=== PATIENT | female | born 1940 | race Caucasian/White ===

== ENCOUNTER → 2017-08-27 | Outpatient (CLI) | payer MEDICARE ==
[2017-05-18 09:12] VITALS: BMI 33.6
[~2017-08-27] MED LIST: ALLO-2 PO; ALLO100T70 PO; AMLO-96 PO; AMLO-99 PO; ASPI-1471 PO; ATOR-1 PO; BLOO-725 MC; CARV12.577 PO; CARV12.578 PO; CEFD300C35 PO; CEFU250T11 PO; CETI-176 PO; CETI10CA8 PO; CHOL200022 PO; CHOL500025 PO; CIPR-214 PO; CLOT15CR63 TP; COLC0.6C3 PO; ENAL20TA99 PO; FAMC250T4 PO; FEN145 PO; FLU180SY9 IM; FLU45SYR25 IM ONLY; FLUC100T35 PO; FURO-45 PO; GABA-1 PO; GABA-549 PO; GEMF600T91 PO; GLUC1KIT4 IJ; HUMALOG SC; HYDR-2966 PO; HYDR-385 PO; INDO-1 PO; INDO50CA92 PO; INSU100C12 SQ; INSU100I28 SQ; INSU100I30 SQ; LANI SUBQ; LEV112 PO; LEV125 PO; LEV175 PO; LEVO-3 PO; LEVO137T23 PO; LEVO75TA73 PO; LISI-362 PO; LISI-374 PO; LISI20TA29 PO; LISI30TA49 PO; LOR5/325 PO; METF-407 PO; METO50TA19 PO; MOD PO; MULT1CAP41 PO; OMEP-125 PO; OXYGENHOME INH; PAN40 PO; PNEU0.5D3 IM; RANI75TA5 PO; ROSU10TA3 PO; ROSU20TA3 PO; ROSU40TA18 PO; SITA100T PO; [UNRECOGNIZED DRUG - CODE]
== END ==
LOC: LAB 09:49
PROVIDERS: ATTEND Emergency Medicine
DX: R39.15 Urgency of urination (principal); B96.89 Other specified bacterial agents as the cause of diseases classified elsewhere
CPT/HCPCS: 81001; 87077; 87088; 87186

== ENCOUNTER → 2017-09-01 | Outpatient (CLI) | payer MEDICARE ==
[2017-05-18 09:12] VITALS: BMI 33.6
[~2017-09-01] MED LIST changes: +CHOL200025 PO; +LEVO750T44 PO; +ROSU10TA13 PO; -ROSU10TA3 PO; +ROSU20TA13 PO; -ROSU20TA3 PO
== END ==
LOC: RESP 20:51
PROVIDERS: ATTEND Emergency Medicine
DX: G47.34 Idiopathic sleep related nonobstructive alveolar hypoventilation (principal); G47.30 Sleep apnea, unspecified; G47.61 Periodic limb movement disorder; G47.21 Circadian rhythm sleep disorder, delayed sleep phase type

== ENCOUNTER → 2017-09-09 | Outpatient (CLI) | payer MEDICARE ==
[2017-05-18 09:12] VITALS: BMI 33.6
== END ==
LOC: LAB 11:10
PROVIDERS: ATTEND Emergency Medicine
DX: N18.3 Chronic kidney disease, stage 3 (moderate) (principal); E11.3293 Type 2 diabetes mellitus with mild nonproliferative diabetic retinopathy without macular edema, bilateral
CPT/HCPCS: 81001

== ENCOUNTER → 2017-10-07 | Outpatient (CLI) | payer MEDICARE ==
[2017-05-18 09:12] VITALS: BMI 33.6
== END ==
LOC: LAB 12:04
PROVIDERS: ATTEND Emergency Medicine
DX: E03.9 Hypothyroidism, unspecified (principal)
CPT/HCPCS: 36415; 84443

== ENCOUNTER → 2017-10-21 | Outpatient (CLI) | payer MEDICARE ==
[2017-05-18 09:12] VITALS: BMI 33.6
== END ==
LOC: LAB 12:04
PROVIDERS: ATTEND Emergency Medicine
DX: E11.9 Type 2 diabetes mellitus without complications (principal)
CPT/HCPCS: 83036

== ENCOUNTER 2017-11-05 01:43 | Day surgery (SDC) | payer MEDICARE ==
[2017-05-18 09:12] VITALS: Ht 162.6 cm; Wt 83.5 kg
[~2017-11-05] VITALS: Ht 162.6 cm; Wt 83.5 kg
[2017-11-05] MEDS ORDERED: OPHTHALMIC PROCEDURE 1 OS PRN (13:20)
[2017-11-05] MEDS ORDERED: OPHTHALMIC PROCEDURE 2 OS PRN ×2 (13:20)
[2017-11-05 13:51] VITALS: BP 177/85
[2017-11-05] MEDS ORDERED: NORMOSOL R SOLN(*) 1000 ML BAG 1,000 ML IV PRN (14:00)
[2017-11-05] MEDS ORDERED: LIDOCAINE/SOD BICARB 8.4% SYR ID ONE (14:00)
[2017-11-05] MEDS ORDERED: MIDAZOLAM 2 MG/2 ML VIAL IVP ONE (14:00)
[2017-11-05] MEDS ORDERED: acetaZOLAMIDE 500 MG CAPCR PO ONE (15:20)
[2017-11-05 16:18] VITALS: BP 178/70
[2017-11-05] MEDS ORDERED: TOBRAMYCIN 0.3% OP SOLN 5 ML OS ONE (17:33)
--- NOTE | 2017-11-05 19:24 | FOSTER LEFT EYE CATARACT ---
EVENT DATE: November 05, 2017 SURGEON: Khanh Harrison MD ANESTHESIOLOGIST: None. ANESTHESIA: Topical. PREOPERATIVE DIAGNOSIS Cataract, left eye. POSTOPERATIVE DIAGNOSIS Cataract, left eye. PROCEDURE Phacoemulsification of cataractous lens with implantation of an intraocular lens , left eye. DESCRIPTION OF PROCEDURE The risks and benefits and alternatives were carefully discussed with the patient, and preoperative consent was obtained. The patient was brought to the operating room after receiving topical anesthetic. The patient was prepped and draped using sterile technique in the usual manner. A stab incision was made, and the chamber was inflated with preservative-free lidocaine. DuoVisc was injected to inflate the chamber. A 2.2 mm blade was used to enter the anterior chamber. Utrata forceps were used to tear a circular capsulorrhexis. BSS was used to hydrodissect the nucleus. Phaco tip was introduced, and the nucleus was chopped into four quadrants. Each quadrant was removed. The I/A tip was used to remove the cortex. The bag was inflated with ProVisc. The intraocular lens was injected into the capsular bag. The I/A tip was used to remove the ProVisc. The wound was found to be watertight. Vigamox, Nevanac, and Maxitrol ointment were placed in the patient's eye. The patient's eye was patched, and the patient was taken to the recovery room in stable condition. The patient was examined in the recovery room and found to be stable prior to release from the hospital. YOAV
== END 2017-11-05 16:55 | disposition home or self-care (01) ==
LOC: OR 01:43
PROVIDERS: ATTEND Ophthalmology
DX: H25.12 Age-related nuclear cataract, left eye (principal)
CPT/HCPCS: 36416; 66984; 82948; A9270; V2632

== ENCOUNTER → 2017-11-23 | Outpatient (CLI) | payer MEDICARE ==
[2017-05-18 09:12] VITALS: BMI 33.6
[~2017-11-23] MED LIST changes: +META800T18 PO
== END ==
LOC: LAB 10:02
PROVIDERS: ATTEND Emergency Medicine
DX: E11.9 Type 2 diabetes mellitus without complications (principal)
CPT/HCPCS: 36415; 82040; 82247; 82310; 82374; 82435; 82465; 82565; 82947; 83718; 84075; 84132; 84155; 84295; 84443; 84450; 84460; 84478; 84520

== ENCOUNTER → 2017-12-21 | Outpatient (CLI) | payer MEDICARE ==
[2017-05-18 09:12] VITALS: BMI 33.6
[~2017-12-21] MED LIST changes: +EXEN2PEN SUBQ
== END ==
LOC: LAB 10:28
PROVIDERS: ATTEND Emergency Medicine
DX: E11.9 Type 2 diabetes mellitus without complications (principal)
CPT/HCPCS: 36415; 83036

== ENCOUNTER → 2018-02-24 | Outpatient (CLI) | payer MEDICARE ==
[2017-05-18 09:12] VITALS: BMI 33.6
[~2018-02-24] MED LIST changes: +BLOO-960 MC; +NEED-653 SUBQ; +SULF-198 PO
[2018-02-24 15:23] LABS: PLATELET COUNT, AUTOMATED 171 K/uL (150-450)
== END ==
LOC: LAB 15:01
PROVIDERS: ATTEND Emergency Medicine
DX: R73.9 Hyperglycemia, unspecified (principal)
CPT/HCPCS: 36415; 81001; 82040; 82247; 82310; 82374; 82435; 82565; 82947; 83036; 84075; 84132; 84155; 84295; 84450; 84460; 84520; 85025

== ENCOUNTER → 2018-02-28 | Outpatient (CLI) | payer MEDICARE ==
[2017-05-18 09:12] VITALS: BMI 33.6
== END ==
LOC: LAB 12:22
PROVIDERS: ATTEND Emergency Medicine
DX: D64.9 Anemia, unspecified (principal)
CPT/HCPCS: 82274

== ENCOUNTER → 2018-03-16 | Outpatient (CLI) | payer MEDICARE ==
[2017-05-18 09:12] VITALS: BMI 33.6
[~2018-03-16] MED LIST changes: +AZEL23SP NS; -INDO-1 PO; +INDO-21 PO; +INDO-23 PO; -INDO50CA92 PO; -ROSU10TA13 PO; +ROSU10TA5 PO; -ROSU20TA13 PO; +ROSU20TA5 PO
[2018-03-16 14:09] LABS: PLATELET COUNT, AUTOMATED 162 K/uL (150-450)
--- NOTE | 2018-03-16 15:10 | EKG ---
FACILITY: [facility] PATIENT NAME: JU PEREIRA : [id number] MR: [id number] V: [id number] EXAM DATE: ORDERING PHYSICIAN: ALEXANDRO BAZAN TECHNOLOGIST: BAILEY JOVEL Test Reason : DYSPNEA Blood Pressure : / mmHG Vent. Rate : 078 BPM Atrial Rate : 078 BPM P-R Int : 186 ms QRS Dur : 130 ms QT Int : 404 ms P-R-T Axes : 075 -51 077 degrees QTc Int : 460 ms Normal sinus rhythm Left axis deviation Left ventricular hypertrophy with QRS widening Abnormal ECG No previous ECGs available Confirmed by ALEXANDRO BAZAN ([id number]) on 03/16/2018 4:16:46 PM Referred By: Confirmed By:ALEXANDRO BAZAN
== END ==
LOC: LAB 13:43
PROVIDERS: ATTEND Emergency Medicine
DX: R94.31 Abnormal electrocardiogram [ECG] [EKG] (principal); E03.9 Hypothyroidism, unspecified; R06.00 Dyspnea, unspecified
CPT/HCPCS: 36415; 82040; 82247; 82310; 82374; 82435; 82565; 82947; 83880; 84075; 84132; 84155; 84295; 84443; 84450; 84460; 84484; 84520; 85025; 85379

== ENCOUNTER → 2018-03-17 | Outpatient (CLI) | payer MEDICARE ==
[2017-05-18 09:12] VITALS: BMI 33.6
--- NOTE | 2018-03-17 15:40 | RADIOLOGY IMAGING REPORT ---
FACILITY: [facility] [place] PATIENT NAME: Lluvia Stephenson : 1940 MR: [id number] V: [id number] EXAM DATE: ORDERING PHYSICIAN: ALEXANDRO BAZAN TECHNOLOGIST: Location: [facility] Patient: Lluvia Stephenson : 1940 Visit/Account:[id number] Date of Sevice: 03/17/2018 EXAMINATION: Nuclear Medicine Ventilation Perfusion Lung Scan 2 View Chest X-Ray 03/17/2018 8:38 AM HISTORY: Dyspnea, cough TECHNIQUE: 33.6 mCi DTPA was administered by inhalation. Static images were obtained. 2.1 mCi Tc MAA was injected intravenously. Gamma camera images were obtained of the chest in various orientations. COMPARISON: Chest x-ray 05/17/2017 FINDINGS: Lung ventilation radiotracer distribution: Mildly heterogeneous localization particularly diminished in the anterior right upper lobe. Lung perfusion radiotracer distribution: Heterogeneous tracer distribution. No discrete focal segme ntal or subsegmental perfusion finding. Correlation to chest x-ray: Increased interstitial markings in the lungs. No pleural effusion. Hear t size is unchanged. Aorta is atherosclerotic. Bony thorax is osteopenic with degenerative spurring in the spine. IMPRESSION: Low probability for acute PE. Report Dictated By: Maicol Boggs MD at 03/17/2018 3:31 PM Report E-Signed By: Maicol Boggs MD at 03/17/2018 3:35 PM WSN:[email or web address]
--- NOTE | 2018-03-17 15:40 | RADIOLOGY IMAGING REPORT ---
FACILITY: [facility] [place] PATIENT NAME: Lluvia Stephenson : 1940 MR: [id number] V: [id number] EXAM DATE: ORDERING PHYSICIAN: ALEXANDRO BAZAN TECHNOLOGIST: Location: [facility] Patient: Lluvia Stephenson : 1940 Visit/Account:[id number] Date of Sevice: 03/17/2018 EXAMINATION: Nuclear Medicine Ventilation Perfusion Lung Scan 2 View Chest X-Ray 03/17/2018 8:38 AM HISTORY: Dyspnea, cough TECHNIQUE: 33.6 mCi DTPA was administered by inhalation. Static images were obtained. 2.1 mCi Tc MAA was injected intravenously. Gamma camera images were obtained of the chest in various orientations. COMPARISON: Chest x-ray 05/17/2017 FINDINGS: Lung ventilation radiotracer distribution: Mildly heterogeneous localization particularly diminished in the anterior right upper lobe. Lung perfusion radiotracer distribution: Heterogeneous tracer distribution. No discrete focal segme ntal or subsegmental perfusion finding. Correlation to chest x-ray: Increased interstitial markings in the lungs. No pleural effusion. Hear t size is unchanged. Aorta is atherosclerotic. Bony thorax is osteopenic with degenerative spurring in the spine. IMPRESSION: Low probability for acute PE. Report Dictated By: Maicol Boggs MD at 03/17/2018 3:31 PM Report E-Signed By: Maicol Boggs MD at 03/17/2018 3:35 PM WSN:[email or web address]
== END ==
LOC: NUC 07:07
PROVIDERS: ATTEND Emergency Medicine
DX: I70.0 Atherosclerosis of aorta (principal); M85.88 Other specified disorders of bone density and structure, other site
CPT/HCPCS: 71046; 78582; 83540; 83550; A9540; A9567

== ENCOUNTER → 2018-03-18 | Outpatient (CLI) | payer MEDICARE ==
[2017-05-18 09:12] VITALS: BMI 33.6
== END ==
LOC: RESP 13:01
PROVIDERS: ATTEND Emergency Medicine
DX: J98.4 Other disorders of lung (principal)
CPT/HCPCS: 94060; 94729

== ENCOUNTER → 2018-03-28 | Outpatient (CLI) | payer MEDICARE ==
[2017-05-18 09:12] VITALS: BMI 33.6
[2018-03-28 11:06] LABS: PLATELET COUNT, AUTOMATED 150 K/uL (150-450)
== END ==
LOC: LAB 10:36
PROVIDERS: ATTEND Emergency Medicine
DX: D64.9 Anemia, unspecified (principal); R73.9 Hyperglycemia, unspecified
CPT/HCPCS: 36415; 82607; 82746; 85025

== ENCOUNTER → 2018-04-11 | Outpatient (CLI) | payer MEDICARE ==
[2017-05-18 09:12] VITALS: BMI 33.6
[~2018-04-11] MED LIST changes: -GEMF600T91 PO; +GEMF600T92 PO
== END ==
LOC: LAB 13:53
PROVIDERS: ATTEND Surgery
DX: C44.619 Basal cell carcinoma of skin of left upper limb, including shoulder (principal)
CPT/HCPCS: 88305

== ENCOUNTER 2018-05-10 11:05 | Inpatient (IN) | payer MEDICARE ==
[2018-05-10] VITALS (8 sets, daily range): BP systolic 91–126; BP diastolic 58–78
[~2018-05-10] VITALS: Ht 160 cm; Wt 85.7 kg
[~2018-05-10 11:05] MED LIST changes: -CARV25TA78 PO; -RIVA15TA PO
--- NOTE | 2018-05-10 11:13 | ER Report ---
History and Physical Time Seen By MD: 11:13 HPI/ROS CHIEF COMPLAINT: New onset A. fib HISTORY OF PRESENT ILLNESS: 77-year-old female patient presents to emergency room with complaint of feeling dizzy. Patient states that she was seen at her primary care provider for a blood pressure check. She states that when they checked her blood pressure that she was normotensive, however they did note that she had an irregular heartbeat. They didn't EKG and found that she was in atrial fibrillation. She states she's never been in that rhythm for. She states she has noticed that her heart rate was elevated for the past week. She states typically in the 120s to 130s. She states she's also been dizzy and passed out a couple of times resulting in a fall. She denies any injury from that. She states she does have some shoulder pain, and pain between the right scapula and her spine. She denies any head or neck pain. She denies any nausea, vomiting or diarrhea. Patient states she is not having any chest pain or shortness of breath. REVIEW OF SYSTEMS: Respiratory: No cough, no dyspnea. Cardiovascular: As noted above Gastrointestinal: No vomiting, no abdominal pain. Musculoskeletal: As noted above. Allergies: Coded Allergies: ciprofloxacin (Unverified Allergy, Unknown, 08/27/17) reported by patient, reaction unknown codeine (Verified Adverse Reaction, Severe, SICK, 07/19/16) adhesive tape (Verified Adverse Reaction, Intermediate, BURN, PEELS OFF SKIN, 07/19/16) Uncoded Allergies: metaxolone (Adverse Reaction, Intermediate, Difficulty breathing, 12/21/17) Home Meds Active Scripts Azelastine/Fluticasone (DYMISTA NASAL SPRAY) 23 Gm [place].pump, 1 SPRAY NS BID, #3 BOTTLE 3 Refills Prov:ALEXANDRO BAZAN MD 04/26/18 Lisinopril (LISINOPRIL) 5 Mg Tablet, 5 MG PO QDAY, #30 TAB 11 Refills Prov:ALEXANDRO BAZAN MD 04/26/18 Allopurinol (Allopurinol) 300 Mg Tablet, 1 TAB PO DAILY, #90 TAB 3 Refills Prov:ALEXANDRO BAZAN MD 04/01/18 Levothyroxine Sodium (LEVOTHYROXINE SODIUM) 75 Mcg Tablet, 0.5 TAB PO QDAY, #45 TAB Prov:ALEXANDRO BAZAN MD 03/30/18 Exenatide Microspheres (Bydureon Pen) 2 Mg/0.65 Ml Pen.injctr, 2 MG SUBQ QWEEK, #4 EA 11 Refills Prov:ALEXANDRO BAZAN MD 03/23/18 Insulin Lispro 100 Un/Ml Pen (HUMALOG 3 ML PEN) 100 Unit/1 Ml Insuln.pen, 12 UNIT SQ ACHS, #1 BOX 11 Refills 11 units before breakfast, 17 units before lunch, 10 units before dinner Prov:ALEXANDRO BAZAN MD 03/18/18 Blood-Glucose Meter (BLOOD GLUCOSE METER) 1 Each Each, EACH MC QID, #1 Prov:ALEXANDRO BAZAN MD 02/25/18 [place], Insulin Disposable (Bd Ultra-Fine Pen Needle) 1 Each Dis.needle, EACH SUBQ 5XD, #1 Prov:ALEXANDRO BAZAN MD 01/04/18 Gabapentin (GABAPENTIN) 300 Mg Capsule, 2 CAP PO HS, #90 CAPSULE 4 Refills Prov:ALEXANDRO BAZAN MD 12/10/17 Insulin Glargine (LANTUS) 100 Unit/Ml Soln, 30 UNIT SUBQ QAM, #1 BOX 11 Refills 30 units every morning. 20 units every night. Prov:ALEXANDRO BAZAN MD 10/21/17 Rosuvastatin Calcium (Rosuvastatin Calcium) 20 Mg Tablet, 1 TAB PO DAILY, #90 TAB 3 Refills Prov:ALEXANDRO BAZAN MD 10/07/17 Carvedilol (COREG) 12.5 Mg Tablet, 12.5 MG PO BID, #180 TAB 4 Refills Prov:ALEXANDRO BAZAN MD 09/30/17 Furosemide (FUROSEMIDE) 20 Mg Tablet, 1 TAB PO DAILY for PRN, #7 TAB 0 Refills Prov:ALEXANDOR BAZAN MD 09/23/17 Omeprazole (OMEPRAZOLE) 20 Mg Capsule.dr, 1 CAP PO QDAY, #90 CAP 4 Refills Prov:ALEXANDRO BAZAN MD 08/10/17 Blood Sugar Diagnostic (CONTOUR) 1 Each Strip, 1 EACH MC 5XD, #150 STRIP 11 Refi lls Use 1 strip 5 times a day for glucose testing. Prov:ALEXANDRO ABZAN MD 11/05/16 Glucagon,Human Recombinant (GLUCAGON EMERGENCY KIT) 1 Mg Kit, 1 MG IJ PRN, #1 KIT 11 Refills Prov:ALEXANDRO BAZAN MD 07/27/16 Reported Medications Cholecalciferol (Vitamin D3) (VITAMIN D3) 2,000 Unit Capsule, 2000 UNIT PO DAILY, CAPSULE 09/01/17 Oxygen (OXYGEN) [place], 2 L INH HS, L 01/23/16 Aspirin (ASPIR 81) 81 Mg Tablet.dr, 81 MG PO QDAY, TAB 01/21/16 Past Medical/Surgical History Patient scheduled past medical history of hypertension, hyperlipidemia, requires oxygen at night, COPD, frequent UTI, arthritis, fractures, diabetes, hypothyroidism, alcohol use. Patient has surgical history of left hand surgery. Patient has a family medical history of cancer. Reviewed Nurses Notes: Yes Hx Smoking: Yes Smoking Status: Former Smoker Exposure to Second Hand Smoke?: No Hx Substance Use Disorder: No Hx Alcohol Use: Yes (daily) Constitutional Vital Sign - Last 24 Hours 05/10/18 05/10/18 05/10/18 05/10/18 11:10 11:11 11:11 11:15 Temp 97.9 Pulse ??? 130 129 Resp 16 23 B/P (MAP) 125/93 125/93 (104) Pulse Ox 97 98 O2 Delivery Room Air 05/10/18 05/10/18 05/10/18 05/10/18 11:19 11:20 11:21 11:24 Pulse 104 Resp 11 B/P (MAP) 102/74 (83) 68/41 (50) 125/64 (84) Pulse Ox 99 05/10/18 05/10/18 05/10/18 05/10/18 11:25 11:30 11:35 11:40 Pulse 132 138 137 ??? Resp 21 17 19 B/P (MAP) ???/??? (1665) Pulse Ox 96 98 05/10/18 05/10/18 05/10/18 05/10/18 11:45 11:50 11:55 12:00 Pulse ??? 125 135 129 Resp 30 27 11 B/P (MAP) 123/70 (87) Pulse Ox 97 98 97 05/10/18 05/10/18 05/10/18 05/10/18 12:05 12:10 12:15 12:20 Pulse 123 113 131 135 Resp 15 19 15 10 B/P (MAP) 102/76 (85) Pulse Ox 93 95 90 96 05/10/18 05/10/18 05/10/18 05/10/18 12:25 12:30 12:35 12:40 Pulse 136 100 97 107 Resp 10 33 16 21 B/P (MAP) 121/70 (87) Pulse Ox 92 92 94 96 05/10/18 05/10/18 05/10/18 05/10/18 12:45 12:50 12:55 13:00 Pulse 126 135 100 103 Resp 8 16 18 8 B/P (MAP) 125/91 (102) Pulse Ox 94 96 95 96 05/10/18 05/10/18 05/10/18 05/10/18 13:05 13:10 13:15 13:20 Pulse 123 116 104 72 Resp 15 15 12 16 B/P (MAP) 130/87 (101) Pulse Ox 97 97 96 95 05/10/18 05/10/18 05/10/18 05/10/18 13:25 13:30 13:35 13:40 Pulse 124 100 126 Resp 10 15 14 8 B/P (MAP) 130/63 (85) Pulse Ox 94 96 95 96 05/10/18 05/10/18 05/10/18 05/10/18 13:45 13:50 13:55 14:00 Pulse 118 98 92 95 Resp 17 21 7 11 B/P (MAP) 125/87 (100) Pulse Ox 89 93 94 96 05/10/18 05/10/18 05/10/18 05/10/18 14:05 14:10 14:15 14:20 Pulse 81 103 102 Resp 22 7 9 16 B/P (MAP) 120/52 (74) Pulse Ox 96 86 87 89 Physical Exam General Appearance: The patient is alert, has no immediate need for airway protection and no current signs of toxicity. Respiratory: Chest is non tender, lungs are clear to auscultation. Cardiac: Irregular rate and rhythm Gastrointestinal: Abdomen is soft and non tender, no masses, bowel sounds normal. Musculoskeletal: Neck: Neck is supple and non tender. Extremities have full range of motion and are non tender. Skin: No rashes or lesions. DIFFERENTIAL DIAGNOSIS: After history and physical exam differential diagnosis was considered for new onset atrial fibrillation, AL, pneumonia, hypertension and thyroidism. Medical Decision Making Data Points Result Diagram: 05/10/18 1137 05/10/18 1118 Laboratory Hematology Test 05/10/18 11:18 05/10/18 11:37 Prothrombin Time 12.8 seconds (12.0-14.4) Prothromb Time International Ratio 0.96 Activated Partial Thromboplast Time 27 seconds (23-35) Sodium Level 137 mmol/L (137-145) Potassium Level 4.4 mmol/L (3.5-5.0) Chloride Level 103 mmol/L (98-107) Carbon Dioxide Level 24 mmol/L (22-31) Blood Urea Nitrogen 21 mg/dl (7-18) Creatinine 1.20 mg/dl (0.52-1.04) Glomerular Filtration Rate Calc 43.8 Random Glucose 110 mg/dl (75-110) Calcium Level 9.5 mg/dl (8.4-10.2) Total Bilirubin 0.4 mg/dl (0.2-1.3) Aspartate Amino Transf (AST/SGOT) 27 U/L (0-35) Alanine Aminotransferase (ALT/SGPT) 34 U/L (0-56) Alkaline Phosphatase 49 U/L (0-126) Troponin I 0.057 ng/ml Total Protein 6.4 g/dl (6.3-8.2) Albumin 3.9 g/dl (3.5-5.0) Thyroid Stimulating Hormone (TSH) 65.00 uIU/ml (0.46-4.68) Red Blood Count 3.44 M/uL (4.17-5.56) Mean Corpuscular Volume 93.1 fL (80.0-96.0) Mean Corpuscular Hemoglobin 31.1 pg (26.0-33.0) Mean Corpuscular Hemoglobin Concent 33.5 g/dL (32.0-36.0) Red Cell Distribution Width 17.4 % (11.5-14.5) Mean Platelet Volume 9.5 fL (7.2-11.1) Neutrophils (%) (Auto) 54.2 % (39.4-72.5) Lymphocytes (%) (Auto) 33.5 % (17.6-49.6) Monocytes (%) (Auto) 9.2 % (4.1-12.4) Eosinophils (%) (Auto) 2.1 % (0.4-6.7) Basophils (%) (Auto) 1.0 % (0.3-1.4) Nucleated RBC Relative Count (auto) 0.0 /100WBC Neutrophils # (Auto) 3.1 K/uL (2.0-7.4) Lymphocytes # (Auto) 1.9 K/uL (1.3-3.6) Monocytes # (Auto) 0.5 K/uL (0.3-1.0) Eosinophils # (Auto) 0.1 K/uL (0.0-0.5) Basophils # (Auto) 0.1 K/uL (0.0-0.1) Nucleated RBC Absolute Count (auto) 0.00 K/uL B-Type Natriuretic Peptide 299 pg/ml (0-100) Chemistry Test 05/10/18 11:18 05/10/18 11:37 Prothrombin Time 12.8 seconds (12.0-14.4) Prothromb Time International Ratio 0.96 Activated Partial Thromboplast Time 27 seconds (23-35) Glomerular Filtration Rate Calc 43.8 Calcium Level 9.5 mg/dl (8.4-10.2) Total Bilirubin 0.4 mg/dl (0.2-1.3) Aspartate Amino Transf (AST/SGOT) 27 U/L (0-35) Alanine Aminotransferase (ALT/SGPT) 34 U/L (0-56) Alkaline Phosphatase 49 U/L (0-126) Troponin I 0.057 ng/ml Total Protein 6.4 g/dl (6.3-8.2) Albumin 3.9 g/dl (3.5-5.0) Thyroid Stimulating Hormone (TSH) 65.00 uIU/ml (0.46-4.68) White Blood Count 5.8 k/uL (4.5-11.0) Red Blood Count 3.44 M/uL (4.17-5.56) Hemoglobin 10.7 g/dL (12.0-16.0) Hematocrit 32.0 % (34.0-47.0) Mean Corpuscular Volume 93.1 fL (80.0-96.0) Mean Corpuscular Hemoglobin 31.1 pg (26.0-33.0) Mean Corpuscular Hemoglobin Concent 33.5 g/dL (32.0-36.0) Red Cell Distribution Width 17.4 % (11.5-14.5) Platelet Count 123 K/uL (150-450) Mean Platelet Volume 9.5 fL (7.2-11.1) Neutrophils (%) (Auto) 54.2 % (39.4-72.5) Lymphocytes (%) (Auto) 33.5 % (17.6-49.6) Monocytes (%) (Auto) 9.2 % (4.1-12.4) Eosinophils (%) (Auto) 2.1 % (0.4-6.7) Basophils (%) (Auto) 1.0 % (0.3-1.4) Nucleated RBC Relative Count (auto) 0.0 /100WBC Neutrophils # (Auto) 3.1 K/uL (2.0-7.4) Lymphocytes # (Auto) 1.9 K/uL (1.3-3.6) Monocytes # (Auto) 0.5 K/uL (0.3-1.0) Eosinophils # (Auto) 0.1 K/uL (0.0-0.5) Basophils # (Auto) 0.1 K/uL (0.0-0.1) Nucleated RBC Absolute Count (auto) 0.00 K/uL B-Type Natriuretic Peptide 299 pg/ml (0-100) Coagulation Test 05/10/18 11:18 Prothrombin Time 12.8 seconds Prothromb Time International Ratio 0.96 Activated Partial Thromboplast Time 27 seconds EKG/Imaging EKG Interpretation 12 lead EKG: Rhythm: A fibrillation with rapid ventricular response, ventricular rate of 125 bpm [place]: Left axis deviation QRS: normal ST segments: normal Imaging Exam type: CHEST PA AND LAT History: pain after fall Comparison: March 17, 2018. Findings: The lungs are free of acute effusions, infiltrates or edema. There is no evidence of a pneumothorax or pneumomediastinum. Mildly prominent chronic initial markings again seen throughout the lungs. Cardiac silhouette is upper limits of normal in size although stable. There are spondylotic changes of the thoracolumbar spine IMPRESSION: 1. Mild chronic interstitial changes throughout the lungs Cardiac silhouette is upper limits of normal in size although stable Report Dictated By: Kaylynn Torres MD at 05/10/2018 1:00 PM Report E-Signed By: Kaylynn Torres MD at 05/10/2018 1:02 PM Exam type: SHOULDER MIN 2 VIEWS RIGHT History: pain after fall Comparison: None. Findings: Two views of the right shoulder demonstrate mild degenerative changes at the right glenohumeral joint. No gross evidence of acute fracture or dislocation. There is a bony density projecting just superior to the right AC joint which cou ld be degenerative in nature although small avulsion fracture fragment in this location not excluded IMPRESSION: 1. Mild degenerative changes of the right shoulder Small bony density projects just superior to the right AC joint possibly degenerative versus a small avulsion fracture fragment Report Dictated By: Kaylynn Torres MD at 05/10/2018 12:59 PM Report E-Signed By: Kaylynn Torres MD at 05/10/2018 1:00 PM ED Course/Re-evaluation ED Course Patient was admitted to an exam room, history and physical were obtained. Differential diagnoses were considered. On examination lungs are clear, heart was irregularly irregular. An EKG was done which showed atrial fibrillation with rapid ventricular response. An IV was started, a CBC, CMP, troponin, BNP, chest x-ray were done. X-ray of the shoulder was also done. The x-rays were negative. There was some possible avulsion fracture of the shoulder, however there was not and location with the patient was tender. The lab work was unremarkable, patient had a creatinine of 1.2. Troponin was indeterminate at 0.054, I believe that is likely secondary to the rapid rate, 120s to 130s for the past week, as well as her kidney failure. I discussed this with the patient. Patient did receive 10 mg of diltiazem IV. That did bring her heart rate down, however he did bounce between mid 90s and 130. I discussed with patient that I believe she should be admitted for observation overnight, so she can get an echocardiogram done. Patient was resistant, however felt patient should be. I did discuss the case with Dr. Diana, hospitalist, who did come down and evaluate the patient. He did request that I start the patient on 5 mg per hour IV diltiazem. He did agree to accept the patient for admission. While he was here patient maintained the 80s and 90s with her heart rate. Decision to Disposition Date: May 10, 2018 Decision to Disposition Time: 14:04 Depart Departure Latest Vital Signs Vital Signs Date Time Temp Pulse Resp B/P (MAP) Pulse Ox O2 Delivery O2 Flow Rate FiO2 05/10/18 14:20 16 120/52 (74) 89 05/10/18 14:15 102 05/10/18 11:11 97.9 Room Air Impression: Primary Impression: New onset atrial fibrillation Condition: Improved Disposition: Admitted from ER Referrals: ALEXANDRO BAZAN MD (PCP) DIANE HADDAD May 10, 2018 11:13
[2018-05-10] MEDS ORDERED: NS(*) 0.9% 500 ML BAG 500 ML IV ONE (11:14)
--- NOTE | 2018-05-10 11:27 | EKG ---
FACILITY: [facility] [place] PATIENT NAME: JU PEREIRA : [id number] MR: [id number] V: [id number] EXAM DATE: ORDERING PHYSICIAN: DIANE HADDAD TECHNOLOGIST: Test Reason : palpitations Blood Pressure : / mmHG Vent. Rate : 125 BPM Atrial Rate : 086 BPM P-R Int : 000 ms QRS Dur : 120 ms QT Int : 326 ms P-R-T Axes : 000 -47 134 degrees QTc Int : 470 ms Atrial fibrillation with rapid ventricular response Left bundle branch block When compared with ECG of 16-MAR-2018 12:47, Atrial fibrillation has replaced Sinus rhythm Vent. rate has increased BY 47 BPM Confirmed by GABI CARVALHO ([id number]) on 05/10/2018 3:24:08 PM Referred By: Confirmed By:GABI CARVALHO
[2018-05-10 11:41] LABS: INR 0.96
[2018-05-10 11:43] LABS: PLATELET COUNT, AUTOMATED 123 K/uL (150-450)
[2018-05-10] MEDS ORDERED: DILTIAZEM 5 MG/ML 5ML IVPUSH IVP ONE (12:00)
[2018-05-10] MEDS: DILTIAZEM HCL* 100 MG ADDVIAL 100 MG in NS(*) 0.9% 100 ML ADDVANT BAG 100 ML IV SCH (13:00)
--- NOTE | 2018-05-10 13:04 | RADIOLOGY IMAGING REPORT ---
FACILITY: [facility] [place] PATIENT NAME: Lluvia Stephenson : 1940 MR: [id number] V: [id number] EXAM DATE: ORDERING PHYSICIAN: DIANE HADDAD TECHNOLOGIST: Location: [facility] Patient: Lluvia Stephenson : 1940 Visit/Account:[id number] Date of Sevice: 05/10/2018 Exam type: SHOULDER MIN 2 VIEWS RIGHT History: pain after fall Comparison: None. Findings: Two views of the right shoulder demonstrate mild degenerative changes at the right glenohumeral joint . No gross evidence of acute fracture or dislocation. There is a bony density projecting just super ior to the right AC joint which could be degenerative in nature although small avulsion fracture frag ment in this location not excluded IMPRESSION: 1. Mild degenerative changes of the right shoulder Small bony density projects just superior to the right AC joint possibly degenerative versus a small avulsion fracture fragment Report Dictated By: Kaylynn Torres MD at 05/10/2018 12:59 PM Report E-Signed By: Kaylynn Torres MD at 05/10/2018 1:00 PM WSN:[email or web address]
--- NOTE | 2018-05-10 13:06 | RADIOLOGY IMAGING REPORT ---
FACILITY: [facility] PATIENT NAME: Lluvia Stephenson : 1940 MR: [id number] V: [id number] EXAM DATE: ORDERING PHYSICIAN: DIANE HADDAD TECHNOLOGIST: Location: [facility] [place] Patient: Lluvia Stephenson : 1940 Visit/Account:[id number] Date of Sevice: 05/10/2018 Exam type: CHEST PA AND LAT History: pain after fall Comparison: March 17, 2018. Findings: The lungs are free of acute effusions, infiltrates or edema. There is no evidence of a pneumothorax or pneumomediastinum. Mildly prominent chronic initial markings again seen throughout the lungs. Ca rdiac silhouette is upper limits of normal in size although stable. There are spondylotic changes of the thoracolumbar spine IMPRESSION: 1. Mild chronic interstitial changes throughout the lungs Cardiac silhouette is upper limits of normal in size although stable Report Dictated By: Kaylynn Torres MD at 05/10/2018 1:00 PM Report E-Signed By: Kaylynn Torres MD at 05/10/2018 1:02 PM WSN:[email or web address]
[2018-05-10] MEDS ORDERED: NS(*) 0.9% 1000 ML BAG 1,000 ML IV PRN (14:24)
[2018-05-10] MEDS ORDERED: INSULIN HUM LISPRO 100 UN/ML 3 ML VIAL SUBQ PRN (14:25)
[2018-05-10] MEDS ORDERED: INFLUENZA VIRUS VAC 0.5 ML SYR IM ONLY ONE (14:25)
--- NOTE | 2018-05-10 15:40 | History & Physical ---
History of Present Illness History of Present Illness 77yo female with HFpEF, T2DM and hypothyroid who came to the ER from her PCP's clinic for concern of atrial fibrillation. The patient checks her BP/P daily because of low BP for the last couple of months. She just had her lisinopril decreased from 5mg to 2mg. She has had some falls over the last couple of we. No reported LOC or dizziness, she just falls backwards. Since 05/07 (3 days), her heart rate has been in the 130's. She denies cp/sob/palpitations. She had a SBP in the 90's today at home, so went to see the nurse at the clinic. Her heart rate was 133bpm and SBP was 108 in clinic. She was found to be in atrial fibrillation by ECG, so was sent to the ER. The patient has had her levothyroxine was cut in half about 6 weeks ago. In the ER, she was given a dose of 10mg IV diltiazem and then started on a drip at 5mg/hour. History Problems: (1) Asthma Status: Chronic (2) CKD (chronic kidney disease) stage 3, GFR 30-59 ml/min Status: Chronic (3) Hypothyroid Status: Chronic (4) HTN (hypertension) Status: Chronic (5) Gout Status: Chronic (6) Diabetic peripheral neuropathy Status: Chronic (7) Non-proliferative diabetic retinopathy Status: Chronic (8) Obesity Status: Chronic (9) GERD (gastroesophageal reflux disease) Status: Chronic (10) Pleural effusion Status: Resolved (11) Dyslipidemia Status: Chronic Home Meds Active Scripts Azelastine/Fluticasone (DYMISTA NASAL SPRAY) 23 Gm [place].pump, 1 SPRAY NS BID, #3 BOTTLE 3 Refills Prov:ALEXANDRO BAZAN MD 04/26/18 Lisinopril (LISINOPRIL) 5 Mg Tablet, 5 MG PO QDAY, #30 TAB 11 Refills Prov:ALEXANDRO BAZAN MD 04/26/18 Allopurinol (Allopurinol) 300 Mg Tablet, 1 TAB PO DAILY, #90 TAB 3 Refills Prov:ALEXANDRO BAZAN MD 04/01/18 Levothyroxine Sodium (LEVOTHYROXINE SODIUM) 75 Mcg Tablet, 0.5 TAB PO QDAY, #45 TAB Prov:ALEXANDRO BAZAN MD 03/30/18 Exenatide Microspheres (Bydureon Pen) 2 Mg/0.65 Ml Pen.injctr, 2 MG SUBQ QWEEK, #4 EA 11 Refills Prov:ALEXANDRO BAZAN MD 03/23/18 Insulin Lispro 100 Un/Ml Pen (HUMALOG 3 ML PEN) 100 Unit/1 Ml Insuln.pen, 12 UNIT SQ ACHS, #1 BOX 11 Refills 11 units before breakfast, 17 units before lunch, 10 units before dinner Prov:ALEXANDRO BAZAN MD 03/18/18 Blood-Glucose Meter (BLOOD GLUCOSE METER) 1 Each Each, EACH MC QID, #1 Prov:ALEXANDRO BAZAN MD 02/25/18 [place], Insulin Disposable (Bd Ultra-Fine Pen Needle) 1 Each Dis.needle, EACH SUBQ 5XD, #1 Prov:ALEXANDRO BAZAN MD 01/04/18 Gabapentin (GABAPENTIN) 300 Mg Capsule, 2 CAP PO HS, #90 CAPSULE 4 Refills Prov:ALEXANDRO BAZAN MD 12/10/17 Insulin Glargine (LANTUS) 100 Unit/Ml Soln, 30 UNIT SUBQ QAM, #1 BOX 11 Refills 30 units every morning. 20 units every night. Prov:ALEXANDRO BAZAN MD 10/21/17 Rosuvastatin Calcium (Rosuvastatin Calcium) 20 Mg Tablet, 1 TAB PO DAILY, #90 TAB 3 Refills Prov:ALEXANDRO BAZAN MD 10/07/17 Carvedilol (COREG) 12.5 Mg Tablet, 12.5 MG PO BID, #180 TAB 4 Refills Prov:ALEXANDRO BAZAN MD 09/30/17 Furosemide (FUROSEMIDE) 20 Mg Tablet, 1 TAB PO DAILY for PRN, #7 TAB 0 Refills Prov:ALEXANDRO BAZAN MD 09/23/17 Omeprazole (OMEPRAZOLE) 20 Mg Capsule.dr, 1 CAP PO QDAY, #90 CAP 4 Refills Prov:ALEXANDRO BAZAN MD 08/10/17 Blood Sugar Diagnostic (CONTOUR) 1 Each Strip, 1 EACH MC 5XD, #150 STRIP 11 Refills Use 1 strip 5 times a day for glucose testing. Prov:ALEXANDRO BAZAN MD 11/05/16 Glucagon,Human Recombinant (GLUCAGON EMERGENCY KIT) 1 Mg Kit, 1 MG IJ PRN, #1 KIT 11 Refills Prov:ALEXANDRO BAZAN MD 07/27/16 Reported Medications Cholecalciferol (Vitamin D3) (VITAMIN D3) 2,000 Unit Capsule, 2000 UNIT PO DAILY, CAPSULE 09/01/17 Oxygen (OXYGEN) Inha, 2 L INH HS, L 01/23/16 Aspirin (ASPIR 81) 81 Mg Tablet.dr, 81 MG PO QDAY, TAB 01/21/16 Allergies: Coded Allergies: ciprofloxacin (Unverified Allergy, Unknown, 08/27/17) reported by patient, reaction unknown codeine (Verified Adverse Reaction, Severe, SICK, 07/19/16) adhesive tape (Verified Adverse Reaction, Intermediate, BURN, PEELS OFF SKIN, 07/19/16) Uncoded Allergies: metaxolone (Adverse Reaction, Intermediate, Difficulty breathing, 12/21/17) Patient History: Colorectal cancer Colorectal cancer FH: HTN (hypertension) MOTHER, , Age:74 FH: abdominal aortic aneurysm MOTHER, , Age:74 FH: cancer BROTHER OR SISTER BROTHER OR SISTER FH: heart attack FATHER, , Age:70 BROTHER OR SISTER FH: hyperlipidemia MOTHER, , Age:74 Other Social/Family Hx Remote tobacco use hx (>40pk yr hx). Occasional alcohol use. Hx Smoking: Yes Smoking Status: Former Smoker Exposure to Second Hand Smoke?: No Caffeine Intake: Coffee Caffeine/Cups Per Day: 4 Hx Alcohol Use: Yes (daily) Hx Substance Use Disorder: No Social Drug Use: Never Review of Systems All Systems Reviewed/Normal: Yes, Except as Noted Exam Vital Signs Vital Signs Date Time Temp Pulse Resp B/P (MAP) Pulse Ox O2 Delivery O2 Flow Rate FiO2 05/10/18 14:25 113 14 84 05/10/18 14:20 120/52 (74) 05/10/18 11:11 97.9 Room Air General Appearance: Alert, Awake, No Acute Distress Neuro: No Gross deficits Eyes: PERRLA ENT: Moist Mucous Membranes Cardiovascular: No JVD, Other (irreg irreg, tachy, no m/r/g) Respiratory: Other (Bibasilar insp crackles) GI: Abd Soft and Non-Tender Extremities: No Edema Integumentary: No Jaundice, No Cyanosis Medical Decision Making Data Points Result Diagram: 05/10/18 1137 05/10/18 1118 Item Value Date Time Thyroid Stimulating Hormone (TSH) 65.00 uIU/ml H 05/10/18 1118 B-Type Natriuretic Peptide 299 pg/ml H 05/10/18 1137 Troponin I 0.057 ng/ml 05/10/18 1118 Total Bilirubin 0.4 mg/dl 05/10/18 1118 Aspartate Amino Transf (AST/SGOT) 27 U/L 05/10/18 1118 Alanine Aminotransferase (ALT/SGPT) 34 U/L 05/10/18 1118 Alkaline Phosphatase 49 U/L 05/10/18 1118 Neutrophils (%) (Auto) 54.2 % 05/10/18 1137 Lymphocytes (%) (Auto) 33.5 % 05/10/18 1137 Monocytes (%) (Auto) 9.2 % 05/10/18 1137 Eosinophils (%) (Auto) 2.1 % 05/10/18 1137 Basophils (%) (Auto) 1.0 % 05/10/18 1137 Hemoglobin 11.4 g/dL L 03/28/18 1050 Hemoglobin 10.7 g/dL L 05/10/18 1137 Platelet Count 150 K/uL 03/28/18 1050 Platelet Count 123 K/uL L 05/10/18 1137 Prothromb Time International Ratio 0.96 05/10/18 1118 Iron Level 84 ug/dl 03/17/18 0000 Total Iron Binding Capacity 290 ug/dl 03/17/18 0000 Percent Iron Saturation 29.0 % 03/17/18 0000 Folate >22.3 ng/mL 03/28/18 1050 Vitamin B12 Level 608 pg/mL 03/28/18 1050 EKG / Imaging EKG Interpretation Atrial fibrillation with RVR. LBBB. Atrial fib is new from previous. Imaging CXR - 1. Mild chronic interstitial changes throughout the lungs Cardiac silhouette is upper limits of normal in size although stable Shoulder Xray - 1. Mild degenerative changes of the right shoulder Small bony density projects just superior to the right AC joint possibly degenerative versus a small avulsion fracture fragment Assessment and Plan Problems: (1) New onset atrial fibrillation Status: Acute Assessment & Plan: She presented with heart rates to the 130's since 05/07. She has been asymptomatic, but has had some falls in the last couple weeks that aren't common for her. She has been rate controlled with diltiazem bolus and drip of 5mg/hour. She is already on Coreg 12.5mg bid, so will increase to Coreg 18.75 bid this evening and stop the diltiazem drip. Echo pending. TSH was high. See below. Will start Xarelto, renal dosing, with dinner. She has bibasilar crackles and the BNP/Troponin are elevated concerning that she is having some strain/CHF exacerbation from the atrial fibrillation. Will follow. (2) (HFpEF) heart failure with preserved ejection fraction Status: Chronic Assessment & Plan: See above. (3) Shoulder pain Status: Acute Assessment & Plan: The patient didn't report shoulder pain to me, but did have an Xray in the ER that saw a small bony density that could be degenerative vs a small avulsion fracture fragment. (4) Hypothyroid Status: Chronic Assessment & Plan: She has been reduced on her levothyroxine twice in the last couple of months. The most recent reduction was from 75mcg to 37.5mcg about 6 weeks ago. Today, the TSH is 65. Will resume 75mcg a day and recheck TSH with a free T4 tomorrow. (5) Insulin-requiring or dependent type II diabetes mellitus Status: Chronic Assessment & Plan: Chronically on Lantus, preprandial insulin and Exenatide. Will continue Lantus for now. SSI to cover AC and HS glucose. (6) CKD (chronic kidney disease) stage 3, GFR 30-59 ml/min Status: Chronic Assessment & Plan: Baseline creatinine is 1.2-1.3. Will follow. (7) HTN (hypertension) Status: Chronic Assessment & Plan: Chronically on lisinopril and Coreg. The lisinopril was reduced from 5mg to 2mg because she has been having low BP since February. Lisinopril to be held and will increase Coreg as mentioned above. (8) Gout Status: Chronic Assessment & Plan: Continue chronic allopurinol. (9) Diabetic peripheral neuropathy Status: Chronic Assessment & Plan: Continue chronic Gabapentin. Copies to: ALEXANDRO BAZAN MD ; Venous Thromboembolism Antithrombotics Is Pt On Any Antithrombotics?: Yes Exam Sepsis Risk: No Definite Risk Problem Qualifiers (1) Shoulder pain: Laterality: right GABI CARVALHO MD May 10, 2018 15:40
[2018-05-10] MEDS ORDERED: RIVAROXABAN 10 MG TAB PO SCH (17:00)
[2018-05-10] MEDS ORDERED: INSU100I28 SQ (17:10)
[2018-05-10] MEDS ORDERED: GABAPENTIN 300 MG CAP PO SCH (21:00)
[2018-05-10] MEDS ORDERED: CARVEDILOL 6.25 MG TAB PO SCH (21:00)
[2018-05-10] MEDS ORDERED: ROSUVASTATIN CALCIUM 10 MG TAB PO SCH (21:00)
[2018-05-11 02:18] VITALS: BP 122/70
[2018-05-11 05:20] VITALS: BP 120/70
[2018-05-11] MEDS: DILTIAZEM HCL* 100 MG ADDVIAL 100 MG in NS(*) 0.9% 100 ML ADDVANT BAG 100 ML IV SCH (05:22)
[2018-05-11 05:49] LABS: PLATELET COUNT, AUTOMATED 129 K/uL (150-450)
[2018-05-11] MEDS ORDERED: LEVOTHYROXINE SOD 0.075 MG TAB PO SCH (06:00)
[2018-05-11] MEDS ORDERED: NS(*) 0.9% 500 ML BAG 500 ML ONE (06:29)
[2018-05-11 07:26] VITALS: BP 101/68
[2018-05-11 08:10] VITALS: Ht 160 cm; Wt 85.7 kg
--- NOTE | 2018-05-11 08:44 | Hospitalist Progress Note ---
Subjective Progress Notes Subjective She reports doing "OK...I guess". No CP or dyspnea. She continues in a-fib, but rate has been improved. She did receive a dose of Xarelto 15mg last evening. Physical Exam Vital Signs Date Time Temp Pulse Resp B/P (MAP) Pulse Ox O2 Delivery O2 Flow Rate FiO2 05/11/18 07:26 98.0 16 101/68 (79) 93 Nasal Cannula 1.0 05/11/18 04:00 107 Intake and Output 05/11/18 07:00 Intake Total 1092.9 ml Balance 1092.9 ml Intake Oral 480 ml IV Total 612.9 ml # Voids 2 General Appearance: Alert, Awake Cardiovascular: Other (Irregular) Respiratory: Clear to Auscultation Result Diagram: 05/11/18 0530 05/11/18 0530 Assessment and Plan Problems: (1) New onset atrial fibrillation Status: Acute Assessment & Plan: She presented with heart rates to the 130's since ~05/07/18. She has been relatively asymptomatic, but has had some falls in the last couple weeks that aren't common for her. She has had better rate control with diltiazem bolus and drip. She has already been on Coreg 12.5mg bid, so will increase to Coreg 25mg BID today and stop the diltiazem drip. Echocardiogram still pending. TSH was low normal in February and now very high (65.0), so have changed her L-thyroxine dose back to 75mcg daily. We have started Xarelto, renal dosed. She appears to be doing fairly well. Will start to mobilize. (2) (HFpEF) heart failure with preserved ejection fraction Status: Chronic Assessment & Plan: See above. Echocardiogram pending. (3) Shoulder pain Status: Acute Assessment & Plan: The patient didn't report shoulder pain, but did have an X- ray in the ER that saw a small bony density that could be degenerative (vs. a small avulsion fracture fragment). (4) Hypothyroid Status: Chronic Assessment & Plan: She has been reduced on her levothyroxine twice in the last couple of months. The most recent reduction was from 75mcg to 37.5mcg about 6 weeks ago. Today, the TSH is 65.0. We have resumed 75mcg a day and recheck TSH with a free T4 today. (5) Insulin-requiring or dependent type II diabetes mellitus Status: Chronic Assessment & Plan: Chronically on Lantus, preprandial insulin, and Exenatide. Will continue Lantus for now. SSI to cover AC and HS glucoses. (6) CKD (chronic kidney disease) stage 3, GFR 30-59 ml/min Status: Chronic Assessment & Plan: Baseline creatinine is 1.2-1.3. Improved to 1.1 today. (7) HTN (hypertension) Status: Chronic Assessment & Plan: Chronically on lisinopril and Coreg. The lisinopril was reduced from 5mg to 2mg because she has been having low BP since February. Lisinopril to be held and will increase Coreg as mentioned above. (8) Gout Status: Chronic Assessment & Plan: Continue chronic allopurinol. (9) Diabetic peripheral neuropathy Status: Chronic Assessment & Plan: Continue chronic Gabapentin. Exam Sepsis Risk: No Definite Risk Problem Qualifiers (1) Shoulder pain: Laterality: right TOSHA JOLLEY MD May 11, 2018 08:43
[2018-05-11] MEDS ORDERED: CARVEDILOL 25 MG TABLET PO SCH (09:00)
[2018-05-11] MEDS ORDERED: DILTIAZEM HCL* 100 MG ADDVIAL 100 MG in NS(*) 0.9% 100 ML ADDVANT BAG 100 ML IV SCH (09:00)
[2018-05-11] MEDS ORDERED: CARVEDILOL 6.25 MG TAB PO SCH (09:00)
[2018-05-11] MEDS ORDERED: PANTOPRAZOLE SOD 40 MG TABEC PO SCH (09:00)
[2018-05-11] MEDS ORDERED: ALLOPURINOL 300 MG TAB PO SCH (09:00)
[2018-05-11] MEDS ORDERED: INSULIN GLARGINE 100 U/ML 3 ML PEN SUBQ SCH (09:00)
[2018-05-11] MEDS ORDERED: OXYGENHOME INH (14:16)
[2018-05-11] MEDS ORDERED: CARV25TA78 PO (14:16)
[2018-05-11] MEDS ORDERED: LEVO75TA73 PO (14:16)
[2018-05-11] MEDS ORDERED: RIVA15TA PO (14:16)
--- NOTE | 2018-05-11 14:29 | Hospitalist Depart ---
Discharge Summary Reason for Hosp/Final Diag: (1) New onset atrial fibrillation Status: Acute Hospital Course & Plan: She presented with heart rates to the 130's since ~05/07/18. She has been relatively asymptomatic. She was initially started on IV diltiazem for help with rate control. We did modify her carvedilol as well. She has had better rate control with the increased dose of carvedilol. Her echocardiogram showed low normal EF with mild pulmonary hypertension and diastolic dysfunction. TSH was low normal in February 2018 and now very high (65.0). We have changed her L-thyroxine dose back to 75mcg daily. We have also started Xarelto 15mg daily (based on age and slightly decreased renal function) for CVA prophylaxis. She appeared to be doing fairly well and tolerating low levels of activity. She will follow up closely with Dr. Bazan as an outpatient. If she does not convert back to sinus rhythm on her own, may need to consider electrical cardioversion. (2) (HFpEF) heart failure with preserved ejection fraction Status: Chronic Hospital Course & Plan: See above. Echocardiogram is similar to 04/2017 with some slight improvement in right-sided pressures. (3) Shoulder pain Status: Acute Hospital Course & Plan: The patient didn't report shoulder pain, but did have an X-ray in the ER that saw a small bony density that could be degenerative (vs. a small avulsion fracture fragment). (4) Hypothyroid Status: Chronic Hospital Course & Plan: She has been reduced on her levothyroxine twice in the last couple of months. The most recent reduction was from 75mcg to 37.5mcg about 6 weeks ago. Today, the TSH is 65.0. We have resumed 75mcg a day. She will need recheck of lab in 4 weeks. (5) Insulin-requiring or dependent type II diabetes mellitus Status: Chronic Hospital Course & Plan: Chronically on Lantus, preprandial insulin, and Exena tide. (6) CKD (chronic kidney disease) stage 3, GFR 30-59 ml/min Status: Chronic Hospital Course & Plan: Baseline creatinine is 1.2-1.3. Improved to 1.1 today. (7) HTN (hypertension) Status: Chronic Hospital Course & Plan: Chronically on lisinopril and Coreg. The lisinopril was recently reduced from 5mg to 2mg because she has been having low BP since February. Lisinopril has been stopped at this time. We did increase Coreg as mentioned above. (8) Gout Status: Chronic Hospital Course & Plan: Continue chronic allopurinol. (9) Diabetic peripheral neuropathy Status: Chronic Hospital Course & Plan: Continue chronic Gabapentin. Departure Weight (Pounds): 189 Weight (Ounces): 1.0 Result Diagram: 05/11/1852905/11/18 0530 Item Value Date Time White Blood Count 5.8 k/uL 05/10/18 1137 Hemoglobin 10.7 g/dL L 05/10/18 1137 Hematocrit 32.0 % L 05/10/18 1137 Platelet Count 123 K/uL L 05/10/18 1137 Sodium Level 137 mmol/L 05/10/18 1118 Potassium Level 4.4 mmol/L 05/10/18 1118 Chloride Level 103 mmol/L 05/10/18 1118 Carbon Dioxide Level 24 mmol/L 05/10/18 1118 Blood Urea Nitrogen 21 mg/dl H 05/10/18 1118 Creatinine 1.20 mg/dl H 05/10/18 1118 Glomerular Filtration Rate Calc 43.8 05/10/18 1118 Random Glucose 110 mg/dl 05/10/18 1118 Calcium Level 9.5 mg/dl 05/10/18 1118 Total Bilirubin 0.4 mg/dl 05/10/18 1118 Aspartate Amino Transf (AST/SGOT) 27 U/L 05/10/18 1118 Alanine Aminotransferase (ALT/SGPT) 34 U/L 05/10/18 1118 Alkaline Phosphatase 49 U/L 05/10/18 1118 Troponin I 0.057 ng/ml 05/10/18 1118 Total Protein 6.4 g/dl 05/10/18 1118 Albumin 3.9 g/dl 05/10/18 1118 Thyroid Stimulating Hormone (TSH) 65.00 uIU/ml H 05/10/18 1118 Free Thyroxine 0.50 ng/dl L 05/11/18 0530 Thyroid Stimulating Hormone (TSH) 72.40 uIU/ml H 05/11/18 0530 B-Type Natriuretic Peptide 250 pg/ml H 05/11/18 0530 B-Type Natriuretic Peptide 299 pg/ml H 05/10/18 1137 Activated Partial Thromboplast Time 27 seconds 05/10/18 111 Prothromb Time International Ratio 0.96 05/10/181117 Prothrombin Time 12.8 seconds 05/10/18 1118 Condition: Improved Discharge: Home Time Spent: > 30 min Discharge Instructions Home Meds Active Scripts Rivaroxaban 15 Mg (XARELTO 15 MG) 15 Mg Tablet, 15 MG PO DAILY, #30 TAB 1 Refill Prov:TOSHA JOLLEY MD 05/11/18 Carvedilol (CARVEDILOL) 25 Mg Tablet, 25 MG PO BID, #180 TAB 1 Refill Prov:TOSHA JOLLEY MD 05/11/18 Levothyroxine Sodium (LEVOTHYROXINE SODIUM) 75 Mcg Tablet, 1 TAB PO QDAY, #90 TAB start taking a full tab daily (75mcg) Prov:TOSHA JOLLEY MD 05/11/18 Oxygen (OXYGEN) Inha, 2 L INH DAILY for 30 Days, L Prov:TOSHA JOLLEY MD 05/11/18 Azelastine/Fluticasone (DYMISTA NASAL SPRAY) 23 Gm [place].pump, 1 SPRAY NS BID, #3 BOTTLE 3 Refills Prov:ALEXANDRO BAZAN MD 04/26/18 Allopurinol (Allopurinol) 300 Mg Tablet, 1 TAB PO DAILY, #90 TAB 3 Refills Prov:ALEXANDRO BAAZN MD 04/01/18 Exenatide Microspheres (Bydureon Pen) 2 Mg/0.65 Ml Pen.injctr, 2 MG SUBQ QWEEK, #4 EA 11 Refills Prov:ALEXANDRO BAZAN MD 03/23/18 Blood-Glucose Meter (BLOOD GLUCOSE METER) 1 Each Each, EACH MC QID, #1 Prov:ALEXANDRO BAZAN MD 02/25/18 Gabapentin (GABAPENTIN) 300 Mg Capsule, 2 CAP PO HS, #90 CAPSULE 4 Refills Prov:ALEXANDRO BAZAN MD 12/10/17 Insulin Glargine (LANTUS) 100 Unit/Ml Soln, 30 UNIT SUBQ QAM, #1 BOX 11 Refills 30 units every morning. 20 units every night. Prov:ALEXANDRO BAZAN MD 10/21/17 Rosuvastatin Calcium (Rosuvastatin Calcium) 20 Mg Tablet, 1 TAB PO DAILY, #90 TAB 3 Refills Prov:ALEXANDRO BAZAN MD 10/07/17 Omeprazole (OMEPRAZOLE) 20 Mg Capsule., 1 CAP PO QDAY, #90 CAP 4 Refills Prov:ALEXANDRO BAZAN MD 08/10/17 Blood Sugar Diagnostic (CONTOUR) 1 Each Strip, 1 EACH MC 5XD, #150 STRIP 11 Refills Use 1 strip 5 times a day for glucose testing. Prov:ALEXANDRO BAZAN MD 11/05/16 Reported Medications Insulin Lispro 100 Un/Ml Pen (HUMALOG 3 ML PEN) 100 Unit/1 Ml Insuln.pen, 100 UNIT SQ, DIS.SYR 05/10/18 Cholecalciferol (Vitamin D3) (VITAMIN D3) 2,000 Unit Capsule, 2000 UNIT PO DAILY, CAPSULE 09/01/17 Discontinued Reported Medications Aspirin (ASPIR 81) 81 Mg Tablet.dr, 81 MG PO QDAY, TAB 01/21/16 Discontinued Scripts Lisinopril (LISINOPRIL) 5 Mg Tablet, 5 MG PO QDAY, #30 TAB 11 Refills Prov:ALEXANDRO BAZAN MD 04/26/18 Carvedilol (COREG) 12.5 Mg Tablet, 12.5 MG PO BID, #180 TAB 4 Refills Prov:ALEXANDRO BAZAN MD 09/30/17 Insulin Lispro 100 Un/Ml Pen (HUMALOG 3 ML PEN) 100 Unit/1 Ml Insuln.pen, 12 UNIT SQ ACHS, #1 BOX 11 Refills 11 units before breakfast, 17 units before lunch, 10 units before dinner Prov:ALEXANDRO BAZAN MD 03/18/18 [place], Insulin Disposable (Bd Ultra-Fine Pen Needle) 1 Each Dis.needle, EACH SUBQ 5XD, #1 Prov:ALEXANDRO BAZAN MD 01/04/18 Furosemide (FUROSEMIDE) 20 Mg Tablet, 1 TAB PO DAILY for PRN, #7 TAB 0 Refills Prov:ALEXANDRO BAZAN MD 09/23/17 Glucagon,Human Recombinant (GLUCAGON EMERGENCY KIT) 1 Mg Kit, 1 MG IJ PRN, #1 KIT 11 Refills Prov:ALEXANDRO BAZAN MD 07/27/16 Follow up Referrals: Internal Medicine @ [facility] with ALEXANDRO BAZAN MD Diet: Diabetic Activity: As Tolerated, No Exertion Special Instructions: Oxygen at 2L via nasal cannula continuously. Follwo up with Dr. Bazan in one week or sooner if any problems. Copies to: ALEXANDRO BAZAN MD ; Venous Thromboembolism Antithrombotics Is Pt On Any Antithrombotics?: Yes Problem Qualifiers (1) Shoulder pain: Laterality: right TOSHA JOLLEY MD May 11, 2018 14:29
== END 2018-05-11 15:40 | disposition home or self-care (01) | DRG 309 ==
LOC: ER 11:14 → EDBEDREQ 14:22 → MED 14:22
PROVIDERS: ADMIT Internal Medicine; ATTEND Internal Medicine
DX: I48.0 Paroxysmal atrial fibrillation (principal); I50.32 Chronic diastolic (congestive) heart failure; I13.0 Hypertensive heart and chronic kidney disease with heart failure and stage 1 through stage 4 chronic kidney disease, or unspecified chronic kidney disease; E11.22 Type 2 diabetes mellitus with diabetic chronic kidney disease; N18.3 Chronic kidney disease, stage 3 (moderate); E11.40 Type 2 diabetes mellitus with diabetic neuropathy, unspecified; M25.511 Pain in right shoulder; E03.9 Hypothyroidism, unspecified; I27.20 Pulmonary hypertension, unspecified; M1A.9XX0 Chronic gout, unspecified, without tophus (tophi); E78.5 Hyperlipidemia, unspecified; K21.9 Gastro-esophageal reflux disease without esophagitis; J44.9 Chronic obstructive pulmonary disease, unspecified; Z88.8 Allergy status to other drugs, medicaments and biological substances; Z79.4 Long term (current) use of insulin; Z99.81 Dependence on supplemental oxygen; Z91.81 History of falling
CPT/HCPCS: 36415; 36416; 71046; 82040; 82247; 82310; 82374; 82435; 82565; 82947; 82948; 83880; 84075; 84132; 84155; 84295; 84439; 84443; 84450; 84460; 84484; 84520; 85025; 85610; 85730; 93005; 93306; 96361; 96365; 96366; 96374; 96375; 99285; J1815; J3490; J7040; J7050

== ENCOUNTER → 2018-05-10 | Outpatient (CLI) | payer MEDICARE ==
[2017-05-18 09:12] VITALS: BMI 33.6
[~2018-05-10] MED LIST changes: +AMLO-111 PO; +AMLO-113 PO; -AMLO-96 PO; -AMLO-99 PO; +CARV25TA78 PO; -CHOL200022 PO; +CHOL200085 PO; +LISI5TAB25 PO; +RIVA15TA PO
--- NOTE | 2018-05-11 16:13 | EKG ---
[place] [facility] [place] JU PEREIR[place] : [id number] MR: [id number] V: [id number] EXAM DATE: ORDERING PHYSICIAN: domingo TECHNOLOGIST: BAILEY JOVEL Test Reason : TACHYCARDIA Blood Pressure : / mmHG Vent. Rate : 118 BPM Atrial Rate : 083 BPM P-R Int : 000 ms QRS Dur : 116 ms QT Int : 348 ms P-R-T Axes : 000 -51 088 degrees QTc Int : 487 ms Atrial fibrillation Left axis deviation Septal infarct , age undetermined Abnormal ECG No previous ECGs available Confirmed by ALEXANDRO BAZAN ([id number]) on 05/12/2018 5:46:57 PM Referred By: Confirmed By:ALEXANDRO BAZAN
== END ==
LOC: RESP 10:52
PROVIDERS: ATTEND Emergency Medicine
DX: Z02.9 Encounter for administrative examinations, unspecified (principal)

== ENCOUNTER 2018-05-16 18:09 | Emergency (ER) | payer MEDICARE ==
[2018-05-11 08:10] VITALS: Wt 85.8 kg
[~2018-05-16 18:09] MED LIST changes: +CARV25TA78 PO; +RIVA15TA PO
--- NOTE | 2018-05-16 18:23 | ER Report ---
History and Physical Time Seen By MD: 18:23 Hx. of Stated Complaint: PAIN BETWEEN SHOULDER BLADES AND HIGH HEART RATE HPI/ROS CHIEF COMPLAINT: Atrial fibrillation with rapid rate HISTORY OF PRESENT ILLNESS: This is a 77-year-old female. She has rapid heart rate and atrial fibrillation. Her primary care doctor has been trying different changes in her medication to treat this recently. She was also recently in the hospital. She's been having some low blood pressure and dizziness. Last week she had a couple of falls because of the dizziness. Low blood pressures and dizziness have been going on for a few weeks now. Slow decrease in her lisinopril and she is currently off of her lisinopril. Last week they increased her carvedilol from 12.5 mg twice a day to 25 mg twice a day. Lisinopril has been stopped. She has a little bit of pain between her right shoulder blade in the midline of her spine. This is been there since she fell last week. She denies any other chest pain. She is not short of breath. She is on Xarelto. REVIEW OF SYSTEMS: Constitutional: [No fever or chills.] Eyes: [No discharge.] [No vision changes.] ENT: [No sore throat.] [No congestion.] [No hearing changes.] Cardiovascular: [No chest pain.] [No palpitations.] Respiratory: [No cough.] [No shortness of breath.] Gastrointestinal: [No abdominal pain.] [No nausea or vomiting.] [No change in bowel movements.] [No blood in the stool or melena.] Genitourinary: [No dysuria.] [No hematuria.] [No frequency] Musculoskeletal: [No back pain.] [No extremity pain.] Skin: [No rashes.] [No bruising.] Neurological: [No numbness.] [No weakness.] [No headache.] Allergies: Coded Allergies: ciprofloxacin (Unverified Allergy, Unknown, 08/27/17) reported by patient, reaction unknown codeine (Verified Adverse Reaction, Severe, SICK, 07/19/16) adhesive tape (Verified Adverse Reaction, Intermediate, BURN, PEELS OFF SKIN, 07/19/16) Uncoded Allergies: metaxolone (Adverse Reaction, Intermediate, Difficulty breathing, 12/21/17) Home Meds Active Scripts Diltiazem Hcl (DILTIAZEM ER) 120 Mg Capsule.er, 120 MG PO BID, #60 CAP 0 Refills Prov:DOLORES JONES MD 05/16/18 Rivaroxaban 15 Mg (XARELTO 15 MG) 15 Mg Tablet, 15 MG PO DAILY, #30 TAB 1 Refill Prov:TOSHA JOLLEY MD 05/11/18 Carvedilol (CARVEDILOL) 25 Mg Tablet, 25 MG PO BID, #180 TAB 1 Refill Prov:TOSHA JOLLEY MD 05/11/18 Levothyroxine Sodium (LEVOTHYROXINE SODIUM) 75 Mcg Tablet, 1 TAB PO QDAY, #90 TAB start taking a full tab daily (75mcg) Prov:TOSHA JOLLEY MD 05/11/18 Oxygen (OXYGEN) Inha, 2 L INH DAILY for 30 Days, L Prov:TOSHA JOLLEY MD 05/11/18 Azelastine/Fluticasone (DYMISTA NASAL SPRAY) 23 Gm [place].pump, 1 SPRAY NS BID, #3 BOTTLE 3 Refills Prov:ALEXANDRO CARMONA MD 04/26/18 Allopurinol (Allopurinol) 300 Mg Tablet, 1 TAB PO DAILY, #90 TAB 3 Refills Prov:ALEXANDRO CARMONA MD 04/01/18 Exenatide Microspheres (Bydureon Pen) 2 Mg/0.65 Ml Pen.injctr, 2 MG SUBQ QWEEK, #4 EA 11 Refills Prov:ALEXANDRO CARMONA MD 03/23/18 Blood-Glucose Meter (BLOOD GLUCOSE METER) 1 Each Each, EACH MC QID, #1 Prov:ALEXANDRO CARMONA MD 02/25/18 Gabapentin (GABAPENTIN) 300 Mg Capsule, 2 CAP PO HS, #90 CAPSULE 4 Refills Prov:ALEXANDRO CARMONA MD 12/10/17 Insulin Glargine (LANTUS) 100 Unit/Ml Soln, 30 UNIT SUBQ QAM, #1 BOX 11 Refills 30 units every morning. 20 units every night. Prov:ALEXANDRO CARMONA MD 10/21/17 Rosuvastatin Calcium (Rosuvastatin Calcium) 20 Mg Tablet, 1 TAB PO DAILY, #90 TAB 3 Refills Prov:ALEXANDRO CARMONA MD 10/07/17 Omeprazole (OMEPRAZOLE) 20 Mg Capsule.dr, 1 CAP PO QDAY, #90 CAP 4 Refills Prov:ALEXANDRO CARMONA MD 08/10/17 Blood Sugar Diagnostic (CONTOUR) 1 Each Strip, 1 EACH MC 5XD, #150 STRIP 11 Refills Use 1 strip 5 times a day for glucose testing. Prov:ALEXANDRO CARMONA MD 11/05/16 Reported Medications Ranitidine Hcl (ZANTAC) 150 Mg Tablet, 150 MG PO PRN, TAB 05/16/18 Cetirizine Hcl (ZYRTEC) 10 Mg Capsule, 10 MG PO QDAY, CAPSULE 05/16/18 Furosemide (FUROSEMIDE) 20 Mg Tablet, 1 TAB PO PRN, TAB 05/16/18 Insulin Lispro 200 UN/ML PEN (Humalog Kwikpen) 200 Unit/1 Ml Insuln.pen 05/16/18 Cholecalciferol (Vitamin D3) (VITAMIN D3) 2,000 Unit Capsule, 2000 UNIT PO DAILY, CAPSULE 09/01/17 Discontinued Reported Medications Insulin Lispro 100 Un/Ml Pen (HUMALOG 3 ML PEN) 100 Unit/1 Ml Insuln.pen, 100 UNIT SQ, DIS.SYR 05/10/18 Aspirin (ASPIR 81) 81 Mg Tablet.dr, 81 MG PO QDAY, TAB 01/21/16 Discontinued Scripts Lisinopril (LISINOPRIL) 5 Mg Tablet, 5 MG PO QDAY, #30 TAB 11 Refills Prov:ALEXANDRO CARMONA MD 04/26/18 Carvedilol (COREG) 12.5 Mg Tablet, 12.5 MG PO BID, #180 TAB 4 Refills Prov:ALEXANDRO CARMONA MD 09/30/17 Insulin Lispro 100 Un/Ml Pen (HUMALOG 3 ML PEN) 100 Unit/1 Ml Insuln.pen, 12 UNIT SQ ACHS, #1 BOX 11 Refills 11 units before breakfast, 17 units before lunch, 10 units before dinner Prov:ALEXANDRO CARMONA MD 03/18/18 [place], Insulin Disposable (Bd Ultra-Fine Pen Needle) 1 Each Dis.needle, EACH SUBQ 5XD, #1 Prov:ALEXANDRO CARMONA MD 01/04/18 Furosemide (FUROSEMIDE) 20 Mg Tablet, 1 TAB PO DAILY for PRN, #7 TAB 0 Refills Prov:ALEXANDRO CARMONA MD 09/23/17 Glucagon,Human Recombinant (GLUCAGON EMERGENCY KIT) 1 Mg Kit, 1 MG IJ PRN, #1 KIT 11 Refills Prov:ALEXANDRO CARMONA MD 07/27/16 Past Medical/Surgical History Atrial fibrillation, hypertension, COPD, arthritis, hypothyroidism, diabetes, history of left hand surgery Reviewed Nurses Notes: Yes Hx Smoking: Yes (Quit 12 years ago) Smoking Status: Former Smoker Exposure to Second Hand Smoke?: No Hx Substance Use Disorder: No Hx Alcohol Use: No Constitutional Vital Sign - Last 24 Hours 05/16/18 05/16/18 05/16/18 05/16/18 18:14 18:19 18:19 18:20 Temp 97.8 Pulse ??? 120 125 Resp 16 37 B/P (MAP) 119/101 119/101 (107) Pulse Ox 97 96 O2 Delivery Room Air 05/16/18 05/16/18 05/16/18 05/16/18 18:24 18:29 18:39 18:40 Pulse 128 117 127 Resp 13 13 17 B/P (MAP) 109/77 (88) Pulse Ox 92 93 96 05/16/18 05/16/18 05/16/18 05/16/18 18:44 18:49 18:54 18:59 Pulse 125 107 128 128 Resp 13 19 14 14 Pulse Ox 92 91 92 93 05/16/18 05/16/18 05/16/18 05/16/18 19:00 19:04 19:09 19:14 Pulse 132 125 127 Resp 11 16 B/P (MAP) 106/82 (90) Pulse Ox 89 91 05/16/18 05/16/18 05/16/18 05/16/18 19:19 19:20 19:24 19:29 Pulse 132 133 128 Resp 12 21 16 B/P (MAP) 113/70 (84) Pulse Ox 95 95 90 05/16/18 05/16/18 05/16/18 05/16/18 19:34 19:40 19:40 19:44 Pulse 121 112 Resp 9 14 B/P (MAP) 113/63 (80) Pulse Ox 96 96 O2 Flow Rate 2.0 05/16/18 05/16/18 05/16/18 05/16/18 19:49 20:00 20:13 20:20 Temp 97.8 Pulse 92 120 89 Resp 16 14 B/P (MAP) ???/??? (1665) 119/101 (107) 103/73 (83) Pulse Ox 97 98 O2 Delivery Room Air O2 Flow Rate 2.0 05/16/18 05/16/18 05/16/18 05/16/18 20:25 20:30 20:35 20:40 Pulse 86 83 89 88 Resp 11 27 10 10 B/P (MAP) 104/72 (83) Pulse Ox 98 98 96 97 O2 Delivery Nasal Cannula O2 Flow Rate 2 05/16/18 05/16/18 05/16/18 05/16/18 20:45 20:50 20:55 21:00 Pulse 102 94 95 101 Resp 11 15 8 B/P (MAP) 116/67 (83) Pulse Ox 96 96 97 O2 Delivery Nasal Cannula O2 Flow Rate 2 05/16/18 05/16/18 21:05 21:20 Pulse 101 Resp 8 B/P (MAP) 117/67 (84) Pulse Ox 96 Physical Exam General Appearance: The patient is alert. No acute distress. Non-toxic in appearance. Eyes: Pupils are equal, round. Reactive to light. No pallor, injection or icterus. Extraocular movements are intact. ENT: Mucous membranes are moist. Normal oral mucosa. Posterior oropharynx is normal. Neck: Supple and non tender. Respiratory: Lungs are clear to auscultation. Cardiovascular: Regular rate and rhythm. No murmurs, gallops or rubs. Normal capillary refill. Trace edema. Gastrointestinal: Abdomen is soft and non tender. Nondistended. Normal active bowel sounds. Neurological: Alert and oriented x3. Cranial nerves II through XII show no acute deficits on my exam. No focal neurologic deficits in the extremities. Skin: Warm and dry. No rashes. Musculoskeletal: Extremities are nontender. No tenderness in palpation of the cervical, thoracic and lumbar spine. She does have some pain in the area of the rhomboids and levator scapula on the right upper back. No other pain in the ribs or chest wall. DIFFERENTIAL DIAGNOSIS: After history and physical exam, differential diagnosis was considered for atrial fibrillation with rapid ventricular rate, dizziness with some low blood pressures. Also with recent falls. She does have the pain in her upper back from the recent falls, we'll get a chest x-ray and rib series. Medical Decision Making Data Points Result Diagram: 05/16/18183905/16/181839 Laboratory Hematology Test 05/16/18 18:40 Red Blood Count 3.23 M/uL (4.17-5.56) Mean Corpuscular Volume 91.0 fL (80.0-96.0) Mean Corpuscular Hemoglobin 30.9 pg (26.0-33.0) Mean Corpuscular Hemoglobin Concent 34.0 g/dL (32.0-36.0) Red Cell Distribution Width 16.9 % (11.5-14.5) Mean Platelet Volume 9.7 fL (7.2-11.1) Neutrophils (%) (Auto) 65.3 % (39.4-72.5) Lymphocytes (%) (Auto) 23.0 % (17.6-49.6) Monocytes (%) (Auto) 9.2 % (4.1-12.4) Eosinophils (%) (Auto) 1.5 % (0.4-6.7) Basophils (%) (Auto) 1.0 % (0.3-1.4) Nucleated RBC Relative Count (auto) 0.1 /100WBC Neutrophils # (Auto) 4.2 K/uL (2.0-7.4) Lymphocytes # (Auto) 1.5 K/uL (1.3-3.6) Monocytes # (Auto) 0.6 K/uL (0.3-1.0) Eosinophils # (Auto) 0.1 K/uL (0.0-0.5) Basophils # (Auto) 0.1 K/uL (0.0-0.1) Nucleated RBC Absolute Count (auto) 0.00 K/uL D-Dimer Quantitative (PE/DVT) 0.29 ug/ml (0-0.50) Sodium Level 136 mmol/L (137-145) Potassium Level 4.2 mmol/L (3.5-5.0) Chloride Level 101 mmol/L (98-107) Carbon Dioxide Level 25 mmol/L (22-31) Blood Urea Nitrogen 22 mg/dl (7-18) Creatinine 1.30 mg/dl (0.52-1.04) Glomerular Filtration Rate Calc 39.9 Random Glucose 157 mg/dl (75-110) Calcium Level 9.0 mg/dl (8.4-10.2) Total Bilirubin 0.4 mg/dl (0.2-1.3) Aspartate Amino Transf (AST/SGOT) 23 U/L (0-35) Alanine Aminotransferase (ALT/SGPT) 28 U/L (0-56) Alkaline Phosphatase 56 U/L (0-126) Troponin I < 0.012 ng/ml B-Type Natriuretic Peptide 191 pg/ml (0-100) Total Protein 6.7 g/dl (6.3-8.2) Albumin 3.8 g/dl (3.5-5.0) Chemistry Test 05/16/18 18:40 White Blood Count 6.5 k/uL (4.5-11.0) Red Blood Count 3.23 M/uL (4.17-5.56) Hemoglobin 10.0 g/dL (12.0-16.0) Hematocrit 29.4 % (34.0-47.0) Mean Corpuscular Volume 91.0 fL (80.0-96.0) Mean Corpuscular Hemoglobin 30.9 pg (26.0-33.0) Mean Corpuscular Hemoglobin Concent 34.0 g/dL (32.0-36.0) Red Cell Distribution Width 16.9 % (11.5-14.5) Platelet Count 129 K/uL (150-450) Mean Platelet Volume 9.7 fL (7.2-11.1) Neutrophils (%) (Auto) 65.3 % (39.4-72.5) Lymphocytes (%) (Auto) 23.0 % (17.6-49.6) Monocytes (%) (Auto) 9.2 % (4.1-12.4) Eosinophils (%) (Auto) 1.5 % (0.4-6.7) Basophils (%) (Auto) 1.0 % (0.3-1.4) Nucleated RBC Relative Count (auto) 0.1 /100WBC Neutrophils # (Auto) 4.2 K/uL (2.0-7.4) Lymphocytes # (Auto) 1.5 K/uL (1.3-3.6) Monocytes # (Auto) 0.6 K/uL (0.3-1.0) Eosinophils # (Auto) 0.1 K/uL (0.0-0.5) Basophils # (Auto) 0.1 K/uL (0.0-0.1) Nucleated RBC Absolute Count (auto) 0.00 K/uL D-Dimer Quantitative (PE/DVT) 0.29 ug/ml (0-0.50) Glomerular Filtration Rate Calc 39.9 Calcium Level 9.0 mg/dl (8.4-10.2) Total Bilirubin 0.4 mg/dl (0.2-1.3) Aspartate Amino Transf (AST/SGOT) 23 U/L (0-35) Alanine Aminotransferase (ALT/SGPT) 28 U/L (0-56) Alkaline Phosphatase 56 U/L (0-126) Troponin I < 0.012 ng/ml B-Type Natriuretic Peptide 191 pg/ml (0-100) Total Protein 6.7 g/dl (6.3-8.2) Albumin 3.8 g/dl (3.5-5.0) Coagulation Test 05/16/18 18:40 D-Dimer Quantitative (PE/DVT) 0.29 ug/ml EKG/Imaging EKG Interpretation 12 lead EKG: Rhythm: A. fib with rapid ventricular rate, 114 [place]: Left axis deviation QRS: Left ventricular hypertrophy ST segments: Nonspecific Imaging CHEST SINGLE AP Indication: Chest pain. A. fib with RVR.. Comparison: May 10, 2018. Findings: Heart size within normal limits. Calcification within the aortic knob. There is no focal infiltrate or lobar consolidation. No significant change in chronic interstitial opacities. Mild left basilar atelectasis and/or scarring. No pneumothorax or pleural effusion. IMPRESSION: 1. No acute cardiopulmonary process. Stable chest. Report Dictated By: Filemon Gallegos MD at 05/16/2018 8:51 PM Exam type: THORACIC SPINE 3 VIEW History: upper back pain, fall Comparison: Chest x-ray 03/17/2018. Findings: The AP view demonstrates a mild rightward thoracic scoliosis with significant degenerative changes. Some very mild wedging in the mid thoracic spine appears stable. No acute fracture. AP alignment is appropriate. Heart is enlarged. IMPRESSION: 1. Mild scoliosis with degenerative changes and osteopenia. Subtle wedging midthoracic spine appears stable. No acute fracture. Report Dictated By: Prakash Bragg MD at 05/16/2018 8:58 PM Exam type: RIBS RIGHT 2 views History: upper back pain, fall Comparison: 05/10/2018. Findings: There are no visualized displaced right rib fractures. Right clavicle and shoulder are intact. The visualized right lung is unremarkable. IMPRESSION: 1. No displaced right rib fractures are seen. Report Dictated By: Prakash Bragg MD at 05/16/2018 9:00 PM ED Course/Re-evaluation Clinical Indication for ER IV: Hydration, IV Access ED Course Improved heart rate after diltiazem, still in A. fib but better rate. Her blood pressure has improved as well. Diltiazem 20 mg IV push was given. Followed with 120 mg extended release diltiazem. EKG and labs unremarkable. Chest x-ray negative. Decision to Disposition Date: May 16, 2018 Decision to Disposition Time: 21:28 Depart Departure Latest Vital Signs Vital Signs Date Time Temp Pulse Resp B/P (MAP) Pulse Ox O2 Delivery O2 Flow Rate FiO2 05/16/18 21:20 117/67 (84) 05/16/18 21:05 101 8 96 05/16/18 21:00 Nasal Cannula 2 05/16/18 20:13 97.8 Impression: Primary Impression: Atrial fibrillation with RVR Condition: Improved Disposition: HOME OR SELF-CARE Referrals: ALEXANDRO CARMONA MD (PCP) New Scripts Diltiazem Hcl (DILTIAZEM ER) 120 Mg Capsule.er 120 MG PO BID, #60 CAP 0 Refills Prov: DOLORES JONES MD 05/16/18 Patient Instructions: A-fib (Atrial Fibrillation) (ED) Additional Instructions: Keep taking your Carvedilol 25mg twice a day. We are going to start Diltiazem 120mg extended release twice a day. Keep taking your Xarelto. Follow-up with Dr Carmona. You will also need to see Cardiology for further evaluation. DOLORES JONES MD May 16, 2018 18:23
[2018-05-16] MEDS ORDERED: ASPIRIN 81 MG CHEW PO ONE (18:50)
[2018-05-16] MEDS ORDERED: FURO-45 PO (18:58)
[2018-05-16] MEDS ORDERED: RANI-366 PO (18:58)
[2018-05-16] MEDS ORDERED: CETI10CA8 PO (18:58)
[2018-05-16] MEDS ORDERED: INSU200I (18:58)
--- NOTE | 2018-05-16 19:02 | EKG ---
FACILITY: [facility] - [place] PATIENT NAME: JU PEREIRA : [id number] MR: [id number] V: [id number] EXAM DATE: ORDERING PHYSICIAN: DOLORES JONES TECHNOLOGIST: Test Reason : Blood Pressure : / mmHG Vent. Rate : 114 BPM Atrial Rate : 127 BPM P-R Int : 000 ms QRS Dur : 128 ms QT Int : 356 ms P-R-T Axes : 000 -45 140 degrees QTc Int : 490 ms Atrial fibrillation with rapid ventricular response with premature ventricular or aberrantly conducte d complexes Left axis deviation Left ventricular hypertrophy with QRS widening T wave abnormality, consider lateral ischemia or digitalis effect Abnormal ECG When compared with ECG of 10-MAY-2018 11:18, Inverted T waves have replaced nonspecific T wave abnormality in Lateral leads Confirmed by PETRONA BENOIT ([id number]) on 05/16/2018 8:17:46 PM Referred By: Confirmed By:PETRONA BENOIT
[2018-05-16 19:04] LABS: PLATELET COUNT, AUTOMATED 129 K/uL (150-450)
[2018-05-16] MEDS ORDERED: DILTIAZEM 5 MG/ML 5ML IVPUSH IVP ONE (19:10)
[2018-05-16] MEDS ORDERED: DILTIAZEM CD 120 MG CAPCR PO ONE (20:30)
--- NOTE | 2018-05-16 20:55 | RADIOLOGY IMAGING REPORT ---
FACILITY: [facility] - [place] PATIENT NAME: Lluvia Stephenson : 1940 MR: [id number] V: [id number] EXAM DATE: ORDERING PHYSICIAN: DOLORES JONES TECHNOLOGIST: Location: [facility] Patient: Lluvia Stephenson : 1940 Visit/Account:[id number] Date of Sevice: 05/16/2018 CHEST SINGLE AP Indication: Chest pain. A. fib with RVR.. Comparison: May 10, 2018. Findings: Heart size within normal limits. Calcification within the aortic knob. There is no focal infiltrate or lobar consolidation. No significant change in chronic interstitial opacities. Mild left basilar atelectasis and/or scarring. No pneumothorax or pleural effusion. IMPRESSION: 1. No acute cardiopulmonary process. Stable chest. Report Dictated By: Filemon Gallegos MD at 05/16/2018 8:51 PM Report E-Signed By: Filemon Gallegos MD at 05/16/2018 8:51 PM WSN:[email or web address]
--- NOTE | 2018-05-16 21:01 | RADIOLOGY IMAGING REPORT ---
FACILITY: [facility] PATIENT NAME: Lluvia Stephenson : 1940 MR: [id number] V: [id number] EXAM DATE: ORDERING PHYSICIAN: DOLORES JONES TECHNOLOGIST: Location: [facility] - [place] Patient: Lluvia Stephenson : 1940 Visit/Account:[id number] Date of Sevice: 05/16/2018 Exam type: CHEST PA AND LAT History: upper back pain, fall Comparison: 05/16/2018 and 05/10/2018. Findings: Both lungs are hyperinflated. Chronic interstitial changes are noted but there is no focal infiltrate , pleural effusion or pneumothorax. Heart size is enlarged. There is calcification of the aortic knob. The osseous structures demonstrate osteopenia, degenerative changes and a kyphosis. No displaced frac tures are seen. IMPRESSION: 1. No acute cardiopulmonary disease. 2. Chronic findings described above. Report Dictated By: Prakash Bragg MD at 05/16/2018 8:56 PM Report E-Signed By: Prakash Bragg MD at 05/16/2018 8:58 PM WSN:[id number]
--- NOTE | 2018-05-16 21:04 | RADIOLOGY IMAGING REPORT ---
FACILITY: [facility] PATIENT NAME: Lluvia Stephenson : 1940 MR: [id number] V: [id number] EXAM DATE: ORDERING PHYSICIAN: DOLORES JONES TECHNOLOGIST: Location[place] [facility] [place] Patient: Lluvia Stephenson : 1940 Visit/Account:[id number] Date of Sevice: 05/16/2018 Exam type: THORACIC SPINE 3 VIEW History: upper back pain, fall Comparison: Chest x-ray 03/17/2018. Findings: The AP view demonstrates a mild rightward thoracic scoliosis with significant degenerative changes. S ome very mild wedging in the mid thoracic spine appears stable. No acute fracture. AP alignment is ap propriate. Heart is enlarged. IMPRESSION: 1. Mild scoliosis with degenerative changes and osteopenia. Subtle wedging midthoracic spine appears stable. No acute fracture. Report Dictated By: Prakash Bragg MD at 05/16/2018 8:58 PM Report E-Signed By: Prakash Bragg MD at 05/16/2018 9:00 PM WSN:[id number]
--- NOTE | 2018-05-16 21:05 | RADIOLOGY IMAGING REPORT ---
FACILITY: [facility] PATIENT NAME: Lluvia Stephenson : 1940 MR: [id number] V: [id number] EXAM DATE: ORDERING PHYSICIAN: DOLORES JONES TECHNOLOGIST: [place] [facility] [place] Lluvia [place] : 1940 Visit/Account:[id number] Date of Sevice: 05/16/2018 Exam type: RIBS RIGHT 2 views History: upper back pain, fall Comparison: 05/10/2018. Findings: There are no visualized displaced right rib fractures. Right clavicle and shoulder are intact. The vi sualized right lung is unremarkable. IMPRESSION: 1. No displaced right rib fractures are seen. Report Dictated By: Prakash Bragg MD at 05/16/2018 9:00 PM Report E-Signed By: Prakash Bragg MD at 05/16/2018 9:02 PM WSN:[id number]
[2018-05-16 21:20] VITALS: BP 117/67
[2018-05-16] MEDS ORDERED: DILT120C4 PO (21:32)
[2018-05-18] MEDS ORDERED: BLOO-725 MC (11:29)
== END 2018-05-16 21:46 | disposition home or self-care (01) ==
LOC: ER 18:31
DX: I48.91 Unspecified atrial fibrillation (principal); E11.9 Type 2 diabetes mellitus without complications; J44.9 Chronic obstructive pulmonary disease, unspecified; Z87.891 Personal history of nicotine dependence
CPT/HCPCS: 71045; 71046; 71100; 72070; 83880; 84484; 85025; 85379; 93005; 96374; 99284; A9270; J3490; 82040; 82247; 82310; 82374; 82435; 82565; 82947; 84075; 84132; 84155; 84295; 84450; 84460; 84520

== ENCOUNTER → 2018-05-23 | Outpatient (CLI) | payer MEDICARE ==
[2018-05-11 08:10] VITALS: BMI 33.5
[~2018-05-23] MED LIST changes: +DILT120C4 PO; +INSU200I; +RANI-366 PO
--- NOTE | 2018-05-23 15:56 | RADIOLOGY IMAGING REPORT ---
FACILITY: [facility] PATIENT NAME: Lluvia Stephenson : 1940 MR: [id number] V: [id number] EXAM DATE: ORDERING PHYSICIAN: ALEXANDRO BAZAN TECHNOLOGIST: Location: [facility] Patient: Lluvia Stephenson : 1940 Visit/Account:[id number] Date of Sevice: 05/23/2018 Exam type: CHEST PA AND LAT History: A. Fib, COPD Comparison: May 16, 2018. Findings: Hyperinflation lung pham is again seen. Chronic peribronchial thickening and interstitial prominen ce is also unchanged. There is no evidence of focal infiltrates, pleural effusions or pulmonary azeem a. The cardiac silhouette is enlarged but unchanged. There are spondylotic changes in the thoracic spine IMPRESSION: 1. Hyperinflation lung pham and chronic peribronchial thickening and interstitial scarring appears stable when compared to the prior study Report Dictated By: Kaylynn Torres MD at 05/23/2018 3:50 PM Report E-Signed By: Kaylynn Torres MD at 05/23/2018 3:51 PM WSN:[email or web address]
--- NOTE | 2018-05-23 17:08 | EKG ---
FACILITY: [facility] - [place] PATIENT NAME: JU PEREIRA : [id number] MR: [id number] V: [id number] EXAM DATE: ORDERING PHYSICIAN: ALEXANDRO BAZAN TECHNOLOGIST: BAILEY JOVEL Test Reason : AFIB W RVR Blood Pressure : / mmHG Vent. Rate : 094 BPM Atrial Rate : 097 BPM P-R Int : 000 ms QRS Dur : 128 ms QT Int : 366 ms P-R-T Axes : 000 -49 115 degrees QTc Int : 457 ms Atrial fibrillation Left bundle branch block Abnormal ECG No previous ECGs available Referred By: Confirmed By:
== END ==
LOC: RAD 14:36
PROVIDERS: ATTEND Emergency Medicine
DX: I48.91 Unspecified atrial fibrillation (principal); E03.9 Hypothyroidism, unspecified
CPT/HCPCS: 36415; 71046; 82310; 82374; 82435; 82565; 82947; 83880; 84132; 84295; 84443; 84520

== ENCOUNTER → 2018-05-25 | Outpatient (CLI) | payer MEDICARE ==
[2018-05-11 08:10] VITALS: BMI 33.5
== END ==
LOC: RESP 21:00
PROVIDERS: ATTEND Emergency Medicine
DX: G47.33 Obstructive sleep apnea (adult) (pediatric) (principal); G47.61 Periodic limb movement disorder; G47.36 Sleep related hypoventilation in conditions classified elsewhere

== ENCOUNTER → 2018-06-07 | Outpatient (CLI) | payer MEDICARE ==
[2018-05-11 08:10] VITALS: BMI 33.5
[2018-06-07 14:38] LABS: PLATELET COUNT, AUTOMATED 178 K/uL (150-450)
== END ==
LOC: LAB 14:02
PROVIDERS: ATTEND Internal Medicine Nephrology
DX: R80.1 Persistent proteinuria, unspecified (principal); N18.3 Chronic kidney disease, stage 3 (moderate); I10 Essential (primary) hypertension
CPT/HCPCS: 36415; 82310; 82374; 82435; 82565; 82570; 82947; 84132; 84156; 84295; 84520; 85025

== ENCOUNTER → 2018-06-07 | Outpatient (CLI) | payer MEDICARE ==
[2018-05-11 08:10] VITALS: BMI 33.5
== END ==
LOC: LAB 13:57
PROVIDERS: ATTEND Emergency Medicine
DX: E11.9 Type 2 diabetes mellitus without complications (principal)
CPT/HCPCS: 36415; 83036

== ENCOUNTER → 2018-06-24 | Outpatient (CLI) | payer MEDICARE ==
[2018-05-11 08:10] VITALS: BMI 33.5
[~2018-06-24] MED LIST changes: +ALBU8.5H IH; +DOCU250C70 PO; +FERR325T5 PO; +FLAS1EAC ASDIRECTED; +FLAS1KIT SUBQ; +FLU180SY11 IM; +INSU100I8 SQ; +RIVA20TA PO; +UMEC1DIS INH
== END ==
LOC: LAB 09:25
PROVIDERS: ATTEND Internal Medicine Nephrology
DX: N17.9 Acute kidney failure, unspecified (principal); I12.9 Hypertensive chronic kidney disease with stage 1 through stage 4 chronic kidney disease, or unspecified chronic kidney disease; D64.9 Anemia, unspecified
CPT/HCPCS: 82040; 82310; 82374; 82435; 82565; 82728; 82947; 83540; 83550; 84100; 84132; 84295; 84520

== ENCOUNTER → 2018-06-24 | Outpatient (CLI) | payer MEDICARE ==
[2018-05-11 08:10] VITALS: BMI 33.5
[2018-06-24 09:54] LABS: PLATELET COUNT, AUTOMATED 218 K/uL (150-450)
== END ==
LOC: LAB 09:30
PROVIDERS: ATTEND Emergency Medicine
DX: E03.9 Hypothyroidism, unspecified (principal); D64.9 Anemia, unspecified
CPT/HCPCS: 36415; 84443; 85025

== ENCOUNTER → 2018-07-12 | Outpatient (CLI) | payer MEDICARE ==
[2018-05-11 08:10] VITALS: BMI 33.5
[~2018-07-12] MED LIST changes: -RANI75TA5 PO; +RANI75TA51 PO
== END ==
LOC: LAB 09:21
PROVIDERS: ATTEND Emergency Medicine
DX: E03.9 Hypothyroidism, unspecified (principal)
CPT/HCPCS: 36415; 84443

== ENCOUNTER → 2018-07-26 | Outpatient (CLI) | payer MEDICARE ==
[2018-05-11 08:10] VITALS: BMI 33.5
[2018-07-26 15:34] LABS: PLATELET COUNT, AUTOMATED 173 K/uL (150-450)
== END ==
LOC: LAB 15:13
PROVIDERS: ATTEND Emergency Medicine
DX: N18.3 Chronic kidney disease, stage 3 (moderate) (principal); E03.9 Hypothyroidism, unspecified; D64.9 Anemia, unspecified
CPT/HCPCS: 36415; 82310; 82374; 82435; 82565; 82947; 84132; 84295; 84443; 84520; 85025

== ENCOUNTER → 2018-09-20 | Outpatient (CLI) | payer MEDICARE ==
[2018-05-11 08:10] VITALS: BMI 33.5
[~2018-09-20] MED LIST changes: -AMLO-111 PO; -AMLO-113 PO; +AMLO-125 PO; +AMLO-127 PO; +CHOL200022 PO; -CHOL200085 PO; -GEMF600T92 PO; +GEMF600T96 PO
== END ==
LOC: LAB 13:35
PROVIDERS: ATTEND Emergency Medicine
DX: E03.9 Hypothyroidism, unspecified (principal)
CPT/HCPCS: 36415; 84443

== ENCOUNTER → 2018-10-24 | Outpatient (CLI) | payer MEDICARE ==
[2018-05-11 08:10] VITALS: BMI 33.5
--- NOTE | 2018-10-24 12:02 | EKG ---
FACILITY: [facility] - [place] PATIENT NAME: JU PEREIRA : [id number] MR: [id number] V: [id number] EXAM DATE: ORDERING PHYSICIAN: PETRONA WAKEFIELD TECHNOLOGIST: NATALIYA Test Reason : PRE OP Blood Pressure : / mmHG Vent. Rate : 066 BPM Atrial Rate : 066 BPM P-R Int : 192 ms QRS Dur : 130 ms QT Int : 438 ms P-R-T Axes : 068 -54 055 degrees QTc Int : 459 ms Normal sinus rhythm Left bundle branch block Cannot rule out Septal infarct , age undetermined Abnormal ECG When compared with ECG of 23-MAY-2018 13:30, Sinus rhythm has replaced Atrial fibrillation Minimal criteria for Septal infarct are now present Confirmed by PETRONA BENOIT ([id number]) on 10/24/2018 6:54:50 PM Referred By: ASHU Confirmed By:PETRONA BENOIT
[2018-10-24 12:04] LABS: PLATELET COUNT, AUTOMATED 171 K/uL (150-450)
== END ==
LOC: LAB 11:39
PROVIDERS: ATTEND Surgery
DX: I44.7 Left bundle-branch block, unspecified (principal); R94.31 Abnormal electrocardiogram [ECG] [EKG]; I48.91 Unspecified atrial fibrillation; I12.9 Hypertensive chronic kidney disease with stage 1 through stage 4 chronic kidney disease, or unspecified chronic kidney disease; E11.9 Type 2 diabetes mellitus without complications; N18.3 Chronic kidney disease, stage 3 (moderate)
CPT/HCPCS: 36415; 82310; 82374; 82435; 82565; 82947; 83036; 84132; 84295; 84520; 85025; 93005

== ENCOUNTER → 2018-10-26 | Outpatient (CLI) | payer MEDICARE ==
[2018-05-11 08:10] VITALS: BMI 33.5
[~2018-10-26] MED LIST changes: +AZIT500T47 PO
[2018-10-26 14:36] LABS: PLATELET COUNT, AUTOMATED 194 K/uL (150-450)
--- NOTE | 2018-10-26 15:55 | RADIOLOGY IMAGING REPORT ---
FACILITY: [facility] [place] PATIENT NAME: Lluvia Stephenson : 1940 MR: [id number] V: [id number] EXAM DATE: ORDERING PHYSICIAN: ALEXANDRO BAZAN TECHNOLOGIST: Location: [facility] Patient: Lluvia Stephenson : 1940 Visit/Account:[id number] Date of Sevice: 10/26/2018 Exam type: CHEST PA LAT History: Cough and shortness of breath x3 weeks Comparison: May 23, 2018. Findings: Again noted is mild hyperinflation lung pham. Mild Chronic peribronchial thickening appears unchan ged. There is no evidence of pleural effusions acute appearing infiltrates or overt pulmonary edema. The cardiac silhouette is normal in size. The trachea is in midline. There are spondylotic change s in the thoracic spine. IMPRESSION: 1. Mild hyperinflation lung pham and mild chronic peribronchial thickening appears unchanged altho ugh no evidence of acute pulmonary consolidation Report Dictated By: Kaylynn Torres MD at 10/26/2018 3:48 PM Report E-Signed By: Kaylynn Torres MD at 10/26/2018 3:49 PM WSN:[id number]
== END ==
LOC: LAB 14:05
PROVIDERS: ATTEND Emergency Medicine
DX: E03.9 Hypothyroidism, unspecified (principal); R91.8 Other nonspecific abnormal finding of lung field
CPT/HCPCS: 36415; 71046; 82040; 82247; 82310; 82374; 82435; 82565; 82947; 83880; 84075; 84132; 84155; 84295; 84443; 84450; 84460; 84520; 85025; 86140

== ENCOUNTER → 2018-10-26 | Outpatient (CLI) | payer MEDICARE ==
[2018-05-11 08:10] VITALS: BMI 33.5
[~2018-10-26] MED LIST changes: +NS(*) 0.9% 1000 ML BAG 1,000 ML IV ONE
[2018-10-26 15:26] VITALS: BP 150/82
[2018-10-26 16:36] VITALS: BP 170/77
[2018-10-26 16:37] VITALS: BP 158/80
[2018-10-26 16:38] VITALS: BP 144/72
== END ==
LOC: SPU 15:16
PROVIDERS: ATTEND Emergency Medicine
DX: E86.0 Dehydration (principal)
CPT/HCPCS: 96360; J7030

== ENCOUNTER → 2018-10-28 | Outpatient (CLI) | payer MEDICARE ==
[2018-05-11 08:10] VITALS: BMI 33.5
[~2018-10-28] MED LIST changes: -NS(*) 0.9% 1000 ML BAG 1,000 ML IV ONE
== END ==
LOC: LAB 20:54
PROVIDERS: ATTEND Emergency Medicine
DX: R19.7 Diarrhea, unspecified (principal)
CPT/HCPCS: 87045; 87177; 87493

== ENCOUNTER 2018-11-15 00:05 | Day surgery (SDC) | payer MEDICARE ==
[2018-05-11 08:10] VITALS: Ht 160 cm; Wt 83.5 kg
[~2018-11-15] VITALS: Ht 160 cm; Wt 83.5 kg
[2018-11-15] MEDS ORDERED: LIDOCAINE/SOD BICARB 8.4% SYR ID ONE (07:25)
[2018-11-15] MEDS ORDERED: NORMOSOL R SOLN(*) 1000 ML BAG 1,000 ML IV PRN (07:25)
[2018-11-15 07:52] VITALS: BP 143/94
--- NOTE | 2018-11-15 10:31 | Short(Outpt) Discharge Summary ---
Discharge Summary Reason for Hosp/Final Diag: (1) Dysphagia Status: Chronic Hospital Course & Plan: EGD completed without problems (normal). (2) Family history of colorectal cancer Hospital Course & Plan: Colonoscopy with polypectomy x11 completed without problems. Will repeat colonoscopy in 1 year. Departure Discharge to: Home, Self Care Discharge Instructions Home Meds Active Scripts Insulin Degludec (Tresiba Flextouch U-100) 100 Unit/Ml (3 Ml) Insuln.pen, 60 UNITS SQ DAILY, #3 BOX 3 Refills Increase by 2 units every 2 days until fasting blood sugar is 120 or less. Prov:ALEXANDRO BAZAN MD 11/11/18 Blood Sugar Diagnostic (CONTOUR) 1 Each Strip, 1 EACH MC 5XD, #100 STRIP 11 Refills Use 1 strip 5 times a day for glucose testing. Prov:ALEXANDRO BAZAN MD 09/27/18 Levothyroxine Sodium (LEVOTHYROXINE SODIUM) 0.112 Mg Tab, 0.112 MG PO QDAY, #90 TAB 3 Refills Prov:ALEXANDRO BAZAN MD 09/21/18 Rosuvastatin Calcium (Rosuvastatin Calcium) 20 Mg Tablet, 1 TAB PO DAILY, #90 TAB 3 Refills Prov:ALEXANDRO BAZAN MD 08/19/18 Carvedilol (CARVEDILOL) 25 Mg Tablet, 25 MG PO BID, #90 TAB 3 Refills Prov:ALEXANDRO BAZAN MD 08/19/18 Omeprazole (OMEPRAZOLE) 20 Mg Capsule.dr, 2 CAP PO QDAY, #180 CAP 4 Refills Prov:ALEXANDRO BAZAN MD 06/17/18 Flash Glucose Sensor (Freestyle Marilu Sensor) 1 Each Kit, EA SUBQ DIRECTED, #3 11 Refills Prov:ALEXANDRO BAZAN MD 06/14/18 Flash Glucose Scanning [place] (Freestyle Marilu [place]) 1 Each Each, MISC ASDIRECTED ONCE, #1 Prov:ALEXANDRO BAZAN MD 06/14/18 Gabapentin (GABAPENTIN) 300 Mg Capsule, 2 CAP PO HS, #180 CAPSULE 3 Refills Prov:ALEXANDRO BAZAN MD 06/14/18 Exenatide Microspheres (Bydureon Pen) 2 Mg/0.65 Ml Pen.injctr, 2 MG SUBQ QWEEK, #6 EA 3 Refills Prov:ALEXANDRO BAZAN MD 06/14/18 Albuterol Sulfate 90 Mcg/Act (PROAIR HFA 90 MCG/ACT) 8.5 Gm Hfa.aer.ad, 2 PUFF IH Q4-6H, #1 INHALER 4 Refills Prov:ALEXANDRO BAZAN MD 06/14/18 Oxygen (OXYGEN) Inha, 2 L INH DAILY for 30 Days, L Prov:TOSHA JOLLEY MD 05/11/18 Azelastine/Fluticasone (DYMISTA NASAL SPRAY) 23 Gm Jber.pump, 1 SPRAY NS BID, #3 BOTTLE 3 Refills Prov:ALEXANDRO BAZAN MD 04/26/18 Allopurinol (Allopurinol) 300 Mg Tablet, 1 TAB PO DAILY, #90 TAB 3 Refills Prov:ALEXANDRO BAZAN MD 04/01/18 Blood-Glucose Meter (BLOOD GLUCOSE METER) 1 Each Each, EACH MC QID, #1 Prov:ALEXANDRO BAZAN MD 02/25/18 Reported Medications Rivaroxaban 20 Mg (XARELTO 20 MG) 20 Mg Tablet, 20 MG PO DAILY, #30 TAB 06/14/18 Cetirizine Hcl (ZYRTEC) 10 Mg Capsule, 10 MG PO QDAY, CAPSULE 05/16/18 Insulin Lispro 200 UN/ML PEN (Humalog Kwikpen) 200 Unit/1 Ml Insuln.pen 12,14 and 14 05/16/18 Cholecalciferol (Vitamin D3) (VITAMIN D3) 2,000 Unit Capsule, 2000 UNIT PO DAILY, CAPSULE 09/01/17 Discontinued Reported Medications Docusate Sodium (DOCUSATE SODIUM) 250 Mg Capsule, 250 MG PO QODAY, CAPSULE 06/27/18 Discontinued Scripts Azithromycin (AZITHROMYCIN) 500 Mg Tablet, 1 TAB PO DAILY, #3 TAB Prov:ALEXANDRO BAZAN MD 10/26/18 Diet: Regular Activity: As Tolerated Special Instructions: Your upper endoscopy and colonoscopy were completed without problems and you prep was excellent (Good Job!!). I didn't find anything abnormal in your esophagus, stomach, or duodenum, your upper endoscopy was normal. I didn't dilate your esophagus as there was nothing to dilate. You had 11 polyps in your colon including a couple of large polyps. They were all removed and sent to pathology. My office will call you in the next week or two to let you know what the polyps are but, in any case, I recommend that you have another colonoscopy in 1 year to recheck your colon to make sure none of the larger polyps are growing back. Problem Qualifiers (1) Dysphagia: Dysphagia type: esophageal phase Qualified Codes: R13.10 - Dysphagia, unspecified PETRONA WAKEFIELD MD Nov 15, 2018 10:31
[2018-11-15 11:09] VITALS: BP 153/74
[2018-11-15 11:15] VITALS: BP 137/88
[2018-11-15 11:17] VITALS: BP 127/64
--- NOTE | 2018-11-15 13:35 | NUR ---
1109- PT. RECEIVED FROM PACU VIA STRETCHER WITH THE SIDERAILS SUP. SBAR RECEIVED FROM JESUS JOVEL. SEE ADMISSION ASSESSMENT. 1115- PT. REPORTS BEING READY TO GO HOME SO ORTHOSTATICS PREFORMED. 1120- PT. GETTING DRESSED. 1130- DISCHARGE INSTRUCTIONS GONE OVER WITH PT. 1135- IV TAKEN OUT AND PRESSURE DRESSING APPLIED. 1140- PT. ACCOMPANIED OUT BY MANDA JOVEL AND .
== END 2018-11-15 11:09 | disposition home or self-care (01) ==
LOC: OR 00:05
PROVIDERS: ATTEND Surgery
DX: Z12.11 Encounter for screening for malignant neoplasm of colon (principal); D12.2 Benign neoplasm of ascending colon; D12.3 Benign neoplasm of transverse colon; D12.5 Benign neoplasm of sigmoid colon; K62.1 Rectal polyp; R13.10 Dysphagia, unspecified; Z80.0 Family history of malignant neoplasm of digestive organs; E11.9 Type 2 diabetes mellitus without complications; K21.9 Gastro-esophageal reflux disease without esophagitis
CPT/HCPCS: 36416; 82948; 88305

== ENCOUNTER 2018-12-30 10:55 | Inpatient (IN) | payer MEDICARE ==
[2018-05-11 08:10] VITALS: Ht 160 cm; Wt 86.2 kg
[~2018-12-30] VITALS: Ht 160 cm; Wt 86.2 kg
[2018-12-30] VITALS (19 sets, daily range): BP systolic 93–125; BP diastolic 55–79
[~2018-12-30 10:55] MED LIST changes: +AMOX500T10 PO
--- NOTE | 2018-12-30 11:05 | ER Report ---
History and Physical Time Seen By MD: 11:02 HPI/KACY CHIEF COMPLAINT: Rapid heart rate HISTORY OF PRESENT ILLNESS: This is a 78-year-old female presents to emergency department for a rapid heart rate. 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 She denies chest pain or shortness of breath. No nausea or vomiting. No recent fevers or chills. No recent travel. She is on Xarelto. REVIEW OF SYSTEMS: Constitutional: No fever, no chills. Eyes: No discharge. ENT: No sore throat. Cardiovascular: As above. Respiratory: No cough, no shortness of breath. Gastrointestinal: No abdominal pain, no vomiting. Genitourinary: No hematuria. Musculoskeletal: No back pain. Skin: No rashes. Neurological: As above. Allergies: Coded Allergies: ciprofloxacin (Unverified Allergy, Unknown, 08/27/17) reported by patient, reaction unknown codeine (Verified Adverse Reaction, Severe, SICK, 07/19/16) adhesive tape (Verified Adverse Reaction, Intermediate, BURN, PEELS OFF SKIN, 07/19/16) Uncoded Allergies: metaxolone (Adverse Reaction, Intermediate, Difficulty breathing, 12/21/17) Home Meds Reported Medications Rivaroxaban 20 Mg (XARELTO 20 MG) 20 Mg Tablet, 20 MG PO QHS, TAB 12/30/18 Insulin Lispro 100 Un/Ml Pen (HUMALOG 3 ML PEN) 100 Unit/1 Ml Insuln.pen, 100 UNIT SQ, DIS.SYR SLIDING SCALE 12/30/18 Insulin Degludec (Tresiba) 100 Unit/Ml Vial, 50 UNITS SQ QHS 12/30/18 Oxygen (OXYGEN) Inha, 2 L INH QHS, L 12/30/18 Gabapentin (GABAPENTIN) 300 Mg Capsule, 600 MG PO QHS, CAPSULE 12/30/18 Rosuvastatin Calcium (CRESTOR) 20 Mg Tablet, 20 MG PO QHS 12/30/18 Cholecalciferol (Vitamin D3) (VITAMIN D3) 1,000 Unit Tablet, 2000 UNIT PO QHS, TAB 12/30/18 Azelastine/Fluticasone (DYMISTA NASAL SPRAY) 23 Gm Rochelle.pump, 23 GM NS BID 12/30/18 Allopurinol (ZYLOPRIM) 300 Mg Tablet, 300 MG PO QDAY, TAB 12/30/18 Carvedilol (CARVEDILOL) 12.5 Mg Tablet, 12.5 MG PO BID, #10 TAB 12/30/18 Omeprazole (OMEPRAZOLE) 20 Mg Capsule.dr, 1 CAP PO BID, CAP 12/30/18 Levothyroxine Sodium (LEVOTHYROXINE SODIUM) 100 Mcg Tablet, 112 MCG PO QDAY, TAB 12/30/18 Discontinued Reported Medications Rivaroxaban 20 Mg (XARELTO 20 MG) 20 Mg Tablet, 20 MG PO QDAY, TAB 12/30/18 Rivaroxaban 20 Mg (XARELTO 20 MG) 20 Mg Tablet, 20 MG PO DAILY, #30 TAB 06/14/18 Cetirizine Hcl (ZYRTEC) 10 Mg Capsule, 10 MG PO QDAY, CAPSULE 05/16/18 Insulin Lispro 200 UN/ML PEN (Humalog Kwikpen) 200 Unit/1 Ml Insuln.pen 12,14 and 14 05/16/18 Cholecalciferol (Vitamin D3) (VITAMIN D3) 2,000 Unit Capsule, 2000 UNIT PO DAILY, CAPSULE 09/01/17 Discontinued Scripts Insulin Degludec (Tresiba Flextouch U-100) 100 Unit/Ml (3 Ml) Insuln.pen, 60 UNITS SQ DAILY, #4 BOX 0 Refills Increase by 2 units every 2 days until fasting blood sugar is 120 or less. Prov:ALEXANDRO BAZAN MD 12/13/18 Levothyroxine Sodium (LEVOTHYROXINE SODIUM) 0.112 Mg Tab, 0.112 MG PO QDAY, #30 TAB 0 Refills Prov:ALEXANDRO BAZAN MD 12/06/18 Amoxicillin 500 Mg Tab (AMOXICILLIN 500 MG TAB) 500 Mg Tablet, 1 TAB PO Q12H, #20 TAB Prov:ALEXANDRO BAZAN MD 12/05/18 Blood Sugar Diagnostic (CONTOUR) 1 Each Strip, 1 EACH MC 5XD, #100 STRIP 11 Refills Use 1 strip 5 times a day for glucose testing. Prov:ALEXANDRO BAZAN MD 09/27/18 Rosuvastatin Calcium (Rosuvastatin Calcium) 20 Mg Tablet, 1 TAB PO DAILY, #90 TAB 3 Refills Prov:ALEXANDRO BAZAN MD 08/19/18 Carvedilol (CARVEDILOL) 25 Mg Tablet, 25 MG PO BID, #90 TAB 3 Refills Prov:ALEXANDRO BAZAN MD 08/19/18 Omeprazole (OMEPRAZOLE) 20 Mg Capsule.dr, 2 CAP PO QDAY, #180 CAP 4 Refills Prov:ALEXANDRO BAZAN MD 06/17/18 Flash Glucose Sensor (Freestyle Marilu Sensor) 1 Each Kit, EA SUBQ DIRECTED, #3 11 Refills Prov:ALEXANDRO BAZAN MD 06/14/18 Flash Glucose Scanning [place] (Freestyle Marilu [place]) 1 Each Each, MISC ASDIRECTED ONCE, #1 Prov:ALEXANDRO BAZAN MD 06/14/18 Gabapentin (GABAPENTIN) 300 Mg Capsule, 2 CAP PO HS, #180 CAPSULE 3 Refills Prov:ALEXANDRO BAZAN MD 06/14/18 Exenatide Microspheres (Bydureon Pen) 2 Mg/0.65 Ml Pen.injctr, 2 MG SUBQ QWEEK, #6 EA 3 Refills Prov:ALEXANDRO BAZAN MD 06/14/18 Albuterol Sulfate 90 Mcg/Act (PROAIR HFA 90 MCG/ACT) 8.5 Gm Hfa.aer.ad, 2 PUFF IH Q4-6H, #1 INHALER 4 Refills Prov:ALEXANDRO BAAZN MD 06/14/18 Oxygen (OXYGEN) Inha, 2 L INH DAILY for 30 Days, L Prov:TOSHA JOLLEY MD 05/11/18 Azelastine/Fluticasone (DYMISTA NASAL SPRAY) 23 Gm [place]le.pump, 1 SPRAY NS BID, #3 BOTTLE 3 Refills Prov:ALEXANDRO BAZAN MD 04/26/18 Allopurinol (Allopurinol) 300 Mg Tablet, 1 TAB PO DAILY, #90 TAB 3 Refills Prov:ALEXANDRO BAZAN MD 04/01/18 Blood-Glucose Meter (BLOOD GLUCOSE METER) 1 Each Each, EACH QID, #1 Prov:ALEXANDRO BAZAN MD 02/25/18 Past Medical/Surgical History The patient has a past medical and surgical history of a fibrillation, hypertension, hypercholesterolemia, wears CPAP, pneumonia, GERD, gastric ulcers, stage III chronic kidney disease, urinary tract infections, gout, right foot fracture, wears glasses, cataract surgery, wears hearing aids, hard of hearing, type II diabetes, hypothyroidism, basal cell carcinoma, left hand surgery. Reviewed Nurses Notes: Yes Hx Smoking: Yes (Quit 12 years ago) Smoking Status: Former Smoker Exposure to Second Hand Smoke?: No Hx Substance Use Disorder: No Hx Alcohol Use: No Constitutional Vital Sign - Last 24 Hours 12/30/18 12/30/18 12/30/18 12/30/18 10:59 11:00 11:03 11:10 Temp 98.8 Pulse 142 142 Resp 20 19 B/P (MAP) 132/100 132/100 (111) 137/88 (104) Pulse Ox 85 96 O2 Delivery Room Air 12/30/18 12/30/18 12/30/18 12/30/18 11:23 11:25 11:29 11:40 Pulse 142 143 Resp 23 11 B/P (MAP) 120/79 (93) 143/79 (100) Pulse Ox 97 89 12/30/18 12/30/18 12/30/18 12/30/18 11:45 11:55 12:00 12:05 Pulse 146 147 Resp 23 25 B/P (MAP) 110/69 (83) 107/58 (74) Pulse Ox 93 85 12/30/18 12/30/18 12/30/18 12/30/18 12:15 12:20 12:30 12:35 Pulse 143 143 Resp 20 B/P (MAP) 112/66 (81) 88/55 (66) Pulse Ox 84 12/30/18 12/30/18 12/30/18 12/30/18 12:45 12:50 13:00 13:05 Pulse 143 143 Resp 7 13 B/P (MAP) 106/71 (83) 111/71 (84) Pulse Ox 94 94 12/30/18 12/30/18 13:10 13:15 Pulse 142 Resp 35 B/P (MAP) 126/76 (93) Pulse Ox 93 Physical Exam General Appearance: The patient is alert, has no immediate need for airway protection and no signs of toxicity. Eyes: Pupils equal and round no pallor or injection. ENT, Mouth: Mucous membranes are moist. Respiratory: There are no retractions, lungs are clear to auscultation. Cardiovascular: Rapid, regular rate and rhythm, no murmurs, clicks or rubs. Gastrointestinal: Abdomen is soft and non tender, no masses, bowel sounds normal. Neurological: Alert and oriented 4. Moving all extremities. Following all commands. No focal neuro deficits. Skin: Warm and dry, no rashes. Musculoskeletal: Neck is supple non tender. Extremities are nontender, nonswollen and have full range of motion. DIFFERENTIAL DIAGNOSIS: After history and physical exam differential diagnosis was considered for pulmonary embolus, afibrillation, infection, myocardial infarction. Medical Decision Making Data Points Result Diagram: 12/30/18 1115 12/30/18 1115 Laboratory Hematology Test 12/30/18 11:15 Red Blood Count 3.94 M/uL (4.17-5.56) Mean Corpuscular Volume 90.8 fL (80.0-96.0) Mean Corpuscular Hemoglobin 29.6 pg (26.0-33.0) Mean Corpuscular Hemoglobin Concent 32.6 g/dL (32.0-36.0) Red Cell Distribution Width 15.1 % (11.5-14.5) Mean Platelet Volume 9.0 fL (7.2-11.1) Neutrophils (%) (Auto) 72.8 % (39.4-72.5) Lymphocytes (%) (Auto) 13.4 % (17.6-49.6) Monocytes (%) (Auto) 12.3 % (4.1-12.4) Eosinophils (%) (Auto) 0.9 % (0.4-6.7) Basophils (%) (Auto) 0.6 % (0.3-1.4) Nucleated RBC Relative Count (auto) 0.0 /100WBC Neutrophils # (Auto) 8.7 K/uL (2.0-7.4) Lymphocytes # (Auto) 1.6 K/uL (1.3-3.6) Monocytes # (Auto) 1.5 K/uL (0.3-1.0) Eosinophils # (Auto) 0.1 K/uL (0.0-0.5) Basophils # (Auto) 0.1 K/uL (0.0-0.1) Nucleated RBC Absolute Count (auto) 0.00 K/uL Sodium Level 139 mmol/L (137-145) Potassium Level 4.8 mmol/L (3.5-5.0) Chloride Level 102 mmol/L (98-107) Carbon Dioxide Level 29 mmol/L (22-31) Blood Urea Nitrogen 22 mg/dl (7-18) Creatinine 1.30 mg/dl (0.52-1.04) Glomerular Filtration Rate Calc 39.8 Random Glucose 72 mg/dl (75-110) Calcium Level 9.3 mg/dl (8.4-10.2) Magnesium Level 1.7 mg/dl (1.7-2.2) Total Bilirubin 0.6 mg/dl (0.2-1.3) Aspartate Amino Transf (AST/SGOT) 20 U/L (0-35) Alanine Aminotransferase (ALT/SGPT) 26 U/L (0-56) Alkaline Phosphatase 62 U/L (0-126) Total Protein 7.3 g/dl (6.3-8.2) Albumin 4.1 g/dl (3.5-5.0) Chemistry Test 12/30/18 11:15 White Blood Count 11.9 k/uL (4.5-11.0) Red Blood Count 3.94 M/uL (4.17-5.56) Hemoglobin 11.7 g/dL (12.0-16.0) Hematocrit 35.8 % (34.0-47.0) Mean Corpuscular Volume 90.8 fL (80.0-96.0) Mean Corpuscular Hemoglobin 29.6 pg (26.0-33.0) Mean Corpuscular Hemoglobin Concent 32.6 g/dL (32.0-36.0) Red Cell Distribution Width 15.1 % (11.5-14.5) Platelet Count 220 K/uL (150-450) Mean Platelet Volume 9.0 fL (7.2-11.1) Neutrophils (%) (Auto) 72.8 % (39.4-72.5) Lymphocytes (%) (Auto) 13.4 % (17.6-49.6) Monocytes (%) (Auto) 12.3 % (4.1-12.4) Eosinophils (%) (Auto) 0.9 % (0.4-6.7) Basophils (%) (Auto) 0.6 % (0.3-1.4) Nucleated RBC Relative Count (auto) 0.0 /100WBC Neutrophils # (Auto) 8.7 K/uL (2.0-7.4) Lymphocytes # (Auto) 1.6 K/uL (1.3-3.6) Monocytes # (Auto) 1.5 K/uL (0.3-1.0) Eosinophils # (Auto) 0.1 K/uL (0.0-0.5) Basophils # (Auto) 0.1 K/uL (0.0-0.1) Nucleated RBC Absolute Count (auto) 0.00 K/uL Glomerular Filtration Rate Calc 39.8 Calcium Level 9.3 mg/dl (8.4-10.2) Magnesium Level 1.7 mg/dl (1.7-2.2) Total Bilirubin 0.6 mg/dl (0.2-1.3) Aspartate Amino Transf (AST/SGOT) 20 U/L (0-35) Alanine Aminotransferase (ALT/SGPT) 26 U/L (0-56) Alkaline Phosphatase 62 U/L (0-126) Total Protein 7.3 g/dl (6.3-8.2) Albumin 4.1 g/dl (3.5-5.0) EKG/Imaging EKG Interpretation 12 lead EKG: Time of EKG 1107. Rhythm: Possible SVT, widened QRS tachycardia, junctional. [place]: normal QRS: normal ST segments: No ST depression or elevation identified. Current EKG is different from the 10/24/2018 EKG showing a normal sinus rhythm with a left bundle branch block. Imaging PATIENT NAME: Lluvia Stephenson : 1940 MR: [id number] V: [id number] EXAM DATE: ORDERING PHYSICIAN: DEE BEAUCHAMP TECHNOLOGIST: Location: [facility] Patient: Lluvia Stephenson : 1940 Visit/Account:[id number] Date of Sevice: 12/30/2018 CHEST SINGLE AP Indication: possible afib Comparison: Chest x-ray 10/26/2018 Findings: Lungs: Prominent interstitial markings throughout both lungs are unchanged. There is no focal airspace opacity. Mediastinum/pulmonary vasculature: Heart size at the upper limits of normal. Bones/soft tissues: Normal. IMPRESSION: 1. Prominent interstitial markings of both lungs, unchanged. 2. No focal airspace opacity or pneumonia. Report Dictated By: Maicol Sullivan at 12/30/2018 12:54 PM Report E-Signed By: Maicol Sullivan at 12/30/2018 12:55 PM [facility]/Re-evaluation Clinical Indication for ER IV: Hydration, IV Access ED Course Patient was admitted to room. A history of physical were obtained. Differential diagnoses were considered. An IV was started. A CBC, CMP were obtained. CBC; 0.9, BUN and creatinine 22 and 1.3, patient does have a history of kidney disease. EKG showing what her complex tachycardia, not a or fibrillation, patient was given 6 mg IV adenosine followed by 12 mg IV adenosine as noted below. Patient did not convert. Patient was then given 20 mg IV diltiazem with no change in her heart rate, blood pressure did drop down to 107 systolic, she was otherwise feeling okay, started on a 5 mg an hour diltiazem drip. I did speak with Dr. toney Joseph still as noted below, he's accept the patient in the hospitalist services. Patient is agreeable with this plan of care, and they will adjust her medications, reevaluates the carvedilol as now she is hypotensive on 25 mg, and 12.5 mg is not controlling her heart rate. 12/30/2018 11:34:13 am we did attempt 6 mg IV adenosine, followed by 12 mg of IV adenosine, patient had several long pauses, there were some P waves then heart rate returned to a sustained 140-1 50 bpm. We did discuss the possibility of cardioversion however the patient's heart rate is been elevated for up to a 4 week although she is on Xarelto, and elected to proceed with diltiazem to see if we can bring the heart rate down, patient is agreeable. 12/30/2018 12:24:15 pm I did speak with Dr. Joseph still, the hospitalist donor services coordinator, he accepted the patient in to the hospitalist services, patient will be admitted to ICU for tachycardia. Decision to Disposition Date: December 30, 2018 Decision to Disposition Time: 12:24 Depart Departure Latest Vital Signs Vital Signs Date Time Temp Pulse Resp B/P (MAP) Pulse Ox O2 Delivery O2 Flow Rate FiO2 12/30/18 13:15 126/76 (93) 12/30/18 13:10 142 35 93 12/30/18 10:59 98.8 Room Air Core Temperature (Celsius): 36.56 Impression: Primary Impression: Tachycardia Condition: Improved Disposition: Admitted from ER Referrals: ALEXANDRO BAZAN MD (PCP) DEE BEAUCHAMPP-BC December 30, 2018 11:04
[2018-12-30] MEDS ORDERED: NS(*) 0.9% 1000 ML BAG 1,000 ML IV ONE (11:15)
[2018-12-30] MEDS ORDERED: ADENOSINE(*)IV SOLN 3MG/ML IVP ONE ×2 (11:15→11:30)
[2018-12-30 11:24] LABS: PLATELET COUNT, AUTOMATED 220 K/uL (150-450)
[2018-12-30] MEDS ORDERED: ONDANSETRON 4 MG/2 ML VIAL IVP ONE (11:25)
[2018-12-30] MEDS ORDERED: DILTIAZEM 5 MG/ML 5ML IVPUSH IVP ONE ×2 (11:30→13:55)
[2018-12-30] MEDS ORDERED: DILTIAZEM HCL 125 MG/25 ML SDV 125 MG in NS(*) 0.9% 100 ML BAG 100 ML IV ONE ×2 (11:45→13:55)
[2018-12-30] MEDS ORDERED: CHOL10005 PO (11:56)
[2018-12-30] MEDS ORDERED: OXYGENHOME INH (11:56)
[2018-12-30] MEDS ORDERED: ALLO-119 PO (11:56)
[2018-12-30] MEDS ORDERED: GABA-549 PO (11:56)
[2018-12-30] MEDS ORDERED: OMEP-125 PO (11:56)
[2018-12-30] MEDS ORDERED: AZEL23SP NS (11:56)
[2018-12-30] MEDS ORDERED: LEVO-3 PO (11:56)
[2018-12-30] MEDS ORDERED: ROSU20TA24 PO (11:56)
[2018-12-30] MEDS ORDERED: CARV12.578 PO (11:56)
[2018-12-30] MEDS ORDERED: INSU100I28 SQ (11:56)
[2018-12-30] MEDS ORDERED: INSU100V8 SQ (11:56)
[2018-12-30] MEDS ORDERED: RIVA20TA PO ×2 (11:56→14:39)
--- NOTE | 2018-12-30 12:22 | EKG ---
FACILITY: [facility] PATIENT NAME: JU PEREIRA : [id number] MR: [id number] V: [id number] EXAM DATE: ORDERING PHYSICIAN: DEE BEAUCHAMP TECHNOLOGIST: NATALIYA Test Reason : CP Blood Pressure : / mmHG Vent. Rate : 143 BPM Atrial Rate : 064 BPM P-R Int : 000 ms QRS Dur : 124 ms QT Int : 324 ms P-R-T Axes : 000 -47 109 degrees QTc Int : 500 ms Atrial fibrillation with RVR Left bundle branch block Abnormal ECG When compared with ECG of 24-OCT-2018 11:54, Vent. rate has increased BY 77 BPM Atrial fibrillation has replaced NSR Confirmed by Ochoa Harmon ([id number]) on 12/30/2018 10:01:57 PM Referred By: DEE Confirmed By:Ochoa Briceño
--- NOTE | 2018-12-30 13:00 | RADIOLOGY IMAGING REPORT ---
FACILITY: [facility] PATIENT NAME: Lluvia Stephenson : 1940 MR: [id number] V: [id number] EXAM DATE: ORDERING PHYSICIAN: DEE BEAUCHAMP TECHNOLOGIST: Location: [facility] [place] Patient: Lluvia Stephenson : 1940 Visit/Account:[id number] Date of Sevice: 12/30/2018 CHEST SINGLE AP Indication: possible afib Comparison: Chest x-ray 10/26/2018 Findings: Lungs: Prominent interstitial markings throughout both lungs are unchanged. There is no focal airspa ce opacity. Mediastinum/pulmonary vasculature: Heart size at the upper limits of normal. Bones/soft tissues: Normal. IMPRESSION: 1. Prominent interstitial markings of both lungs, unchanged. 2. No focal airspace opacity or pneumonia. Report Dictated By: Maicol Sullivan at 12/30/2018 12:54 PM Report E-Signed By: Maicol Sullivan at 12/30/2018 12:55 PM WSN:[id number]
[2018-12-30] MEDS ORDERED: LEV112 PO (17:46)
[2018-12-30] MEDS ORDERED: FLUSH 10 ML SYR IVP PRN (18:25)
[2018-12-30] MEDS ORDERED: ACETAMINOPHEN 325 MG TAB PO PRN (18:25)
[2018-12-30] MEDS ORDERED: INFLUENZA VIRUS VAC 0.5ML SYR IM ONLY ONE (18:25)
[2018-12-30] MEDS ORDERED: METOPROLOL TART 5 MG/5 ML VIAL IVP ONE ×3 (18:30→20:05)
[2018-12-30] MEDS: RIVAROXABAN 10 MG TAB PO SCH (20:39)
[2018-12-30] MEDS: ROSUVASTATIN CALCIUM 10 MG TAB PO SCH (20:40)
[2018-12-30] MEDS: GABAPENTIN 300 MG CAP PO SCH (20:40)
[2018-12-30] MEDS: PANTOPRAZOLE SOD 40 MG TABEC PO SCH (20:40)
[2018-12-30] MEDS: INSULIN GLARGINE 100 U/ML 3 ML PEN SUBQ SCH (20:41)
--- NOTE | 2018-12-30 20:53 | EKG ---
FACILITY: [facility] [place] PATIENT NAME: JU PEREIRA : [id number] MR: [id number] V: [id number] EXAM DATE: ORDERING PHYSICIAN: ANIRUDH SOLOMON TECHNOLOGIST: TIMO Test Reason : TACHYCARDIA Blood Pressure : / mmHG Vent. Rate : 119 BPM Atrial Rate : 086 BPM P-R Int : 000 ms QRS Dur : 130 ms QT Int : 346 ms P-R-T Axes : 000 -45 089 degrees QTc Int : 486 ms Atrial fibrillation with rapid ventricular response LBBB Abnormal ECG When compared with ECG of 30-DEC-2018 11:07, Rate has decreased by 54 BPM Confirmed by Anirudh Harmon ([id number]) on 12/30/2018 10:05:10 PM Referred By: Confirmed By:Anirudh Solomon
[2018-12-30] MEDS ORDERED: DIGOXIN 0.5 MG/2 ML AMP IVP ONE (21:15)
--- NOTE | 2018-12-30 21:31 | History & Physical ---
History of Present Illness Chief Complaint tachycardia History of Present Illness 78F presented with concern for tachycardia, fatigue. PMHx significant for atrial fibrillation, GERD, constipation, hypothyroid. Reports she was started on 25mg Coreg BID after successful cardioversion but became orthostatic and was cut to 12.5mg BID about 2 weeks ago. Began having spells of increased heart rate which became persistent she came to ER. History Problems: (1) Atrial fibrillation Status: Chronic (2) (HFpEF) heart failure with preserved ejection fraction Status: Chronic (3) Hypothyroid Status: Chronic (4) Insulin-requiring or dependent type II diabetes mellitus Status: Chronic Home Meds Reported Medications Levothyroxine Sodium (LEVOTHYROXINE SODIUM) 0.112 Mg Tab, 0.112 MG PO QDAY, TAB 12/30/18 Rivaroxaban 20 Mg (XARELTO 20 MG) 20 Mg Tablet, 20 MG PO QHS, TAB 12/30/18 Insulin Lispro 100 Un/Ml Pen (HUMALOG 3 ML PEN) 100 Unit/1 Ml Insuln.pen, 100 UNIT SQ, DIS.SYR SLIDING SCALE 12/30/18 Insulin Degludec (Tresiba) 100 Unit/Ml Vial, 50 UNITS SQ QHS 12/30/18 Oxygen (OXYGEN) Inha, 2 L INH QHS, L 12/30/18 Gabapentin (GABAPENTIN) 300 Mg Capsule, 600 MG PO QHS, CAPSULE 12/30/18 Rosuvastatin Calcium (CRESTOR) 20 Mg Tablet, 20 MG PO QHS 12/30/18 Cholecalciferol (Vitamin D3) (VITAMIN D3) 1,000 Unit Tablet, 2000 UNIT PO QHS, T AB 12/30/18 Azelastine/Fluticasone (DYMISTA NASAL SPRAY) 23 Gm [place].pump, 23 GM NS BID 12/30/18 Allopurinol (ZYLOPRIM) 300 Mg Tablet, 300 MG PO QDAY, TAB 12/30/18 Carvedilol (CARVEDILOL) 12.5 Mg Tablet, 12.5 MG PO BID, #10 TAB 12/30/18 Omeprazole (OMEPRAZOLE) 20 Mg Capsule.dr, 1 CAP PO BID, CAP 12/30/18 Discontinued Reported Medications Rivaroxaban 20 Mg (XARELTO 20 MG) 20 Mg Tablet, 20 MG PO QDAY, TAB 12/30/18 Levothyroxine Sodium (LEVOTHYROXINE SODIUM) 100 Mcg Tablet, 112 MCG PO QDAY, TAB 12/30/18 Rivaroxaban 20 Mg (XARELTO 20 MG) 20 Mg Tablet, 20 MG PO DAILY, #30 TAB 06/14/18 Cetirizine Hcl (ZYRTEC) 10 Mg Capsule, 10 MG PO QDAY, CAPSULE 05/16/18 Insulin Lispro 200 UN/ML PEN (Humalog Kwikpen) 200 Unit/1 Ml Insuln.pen 12,14 and 14 05/16/18 Cholecalciferol (Vitamin D3) (VITAMIN D3) 2,000 Unit Capsule, 2000 UNIT PO DAILY, CAPSULE 09/01/17 Discontinued Scripts Insulin Degludec (Tresiba Flextouch U-100) 100 Unit/Ml (3 Ml) Insuln.pen, 60 UNITS SQ DAILY, #4 BOX 0 Refills Increase by 2 units every 2 days until fasting blood sugar is 120 or less. Prov:ALEXANDRO BAZAN MD 12/13/18 Levothyroxine Sodium (LEVOTHYROXINE SODIUM) 0.112 Mg Tab, 0.112 MG PO QDAY, #30 TAB 0 Refills Prov:ALEXANDRO BAZAN MD 12/06/18 Amoxicillin 500 Mg Tab (AMOXICILLIN 500 MG TAB) 500 Mg Tablet, 1 TAB PO Q12H, #20 TAB Prov:ALEXANDRO BAZAN MD 12/05/18 Blood Sugar Diagnostic (CONTOUR) 1 Each Strip, 1 EACH MC 5XD, #100 STRIP 11 Refills Use 1 strip 5 times a day for glucose testing. Prov:ALEXANDRO BAZAN MD 09/27/18 Rosuvastatin Calcium (Rosuvastatin Calcium) 20 Mg Tablet, 1 TAB PO DAILY, #90 TAB 3 Refills Prov:ALEXANDRO BAZAN MD 08/19/18 Carvedilol (CARVEDILOL) 25 Mg Tablet, 25 MG PO BID, #90 TAB 3 Refills Prov:ALEXANDRO BAZAN MD 08/19/18 Omeprazole (OMEPRAZOLE) 20 Mg Capsule.dr, 2 CAP PO QDAY, #180 CAP 4 Refills Prov:ALEXANDRO BAZAN MD 06/17/18 Flash Glucose Sensor (Freestyle Marilu Sensor) 1 Each Kit, EA SUBQ DIRECTED, #3 11 Refills Prov:ALEXANDRO BAZAN MD 06/14/18 Flash Glucose Scanning [place] (Freestyle [place]ilu [place]) 1 Each Each, [facility] [place], #1 Prov:ALEXANDRO BAZAN MD 06/14/18 Gabapentin (GABAPENTIN) 300 Mg Capsule, 2 CAP PO HS, #180 CAPSULE 3 Refills Prov:ALEXANDRO BAZAN MD 06/14/18 Exenatide Microspheres (Bydureon Pen) 2 Mg/0.65 Ml Pen.injctr, 2 MG SUBQ QWEEK, #6 EA 3 Refills Prov:ALEXANDRO BAZAN MD 06/14/18 Albuterol Sulfate 90 Mcg/Act (PROAIR HFA 90 MCG/ACT) 8.5 Gm Hfa.aer.ad, 2 PUFF IH Q4-6H, #1 INHALER 4 Refills Prov:ALEXANDRO BAZAN MD 06/14/18 Oxygen (OXYGEN) Inha, 2 L INH DAILY for 30 Days, L Prov:TOSHA JOLLEY MD 05/11/18 Azelastine/Fluticasone (DYMISTA NASAL SPRAY) 23 Gm [place].pump, 1 SPRAY NS BID, #3 BOTTLE 3 Refills Prov:ALEXANDRO BAZAN MD 04/26/18 Allopurinol (Allopurinol) 300 Mg Tablet, 1 TAB PO DAILY, #90 TAB 3 Refills Prov:ALEXANDRO BAZAN MD 04/01/18 Blood-Glucose Meter (BLOOD GLUCOSE METER) 1 Each Each, EACH QID, #1 Prov:ALEXANDRO BAZAN MD 02/25/18 Allergies: Coded Allergies: ciprofloxacin (Unverified Allergy, Unknown, 08/27/17) reported by patient, reaction unknown codeine (Verified Adverse Reaction, Severe, SICK, 07/19/16) adhesive tape (Verified Adverse Reaction, Intermediate, BURN, PEELS OFF SKIN, 07/19/16) Uncoded Allergies: metaxolone (Adverse Reaction, Intermediate, Difficulty breathing, 12/21/17) Patient History: Colorectal cancer Colorectal cancer FH: HTN (hypertension) MOTHER, , Age:74 FH: abdominal aortic aneurysm MOTHER, , Age:74 FH: cancer BROTHER OR SISTER BROTHER OR SISTER BROTHER OR SISTER FH: heart attack FATHER, , Age:70 BROTHER OR SISTER FH: hyperlipidemia MOTHER, , Age:74 Hx Smoking: Yes (Quit 14 years ago) Smoking Status: Former Smoker Exposure to Second Hand Smoke?: No Caffeine Intake: Coffee Caffeine/Cups Per Day: 1 cup per day, decaf coffee 24 oz per day Hx Alcohol Use: No When Quit Alcohol?: 3-4 years ago Hx Substance Use Disorder: No Social Drug Use: Never Review of Systems All Systems Reviewed/Normal: Yes, Except as Noted Cardiovascular: Palpitations Respiratory: No Shortness of Breath Exam Vital Signs Vital Signs Date Time Temp Pulse Resp B/P (MAP) Pulse Ox O2 Delivery O2 Flow Rate FiO2 12/30/18 19:35 119 101/60 (74) 12/30/18 14:10 92 Nasal Cannula 2.0 12/30/18 13:44 98.8 18 General Appearance: Alert, Awake, No Acute Distress Neuro: No Gross deficits Cardiovascular: Other (irregularly irregular) Respiratory: No Respiratory Distress GI: Abd Soft and Non-Tender Extremities: Soft and Non Tender, Warm, Pulses, Perfused Integumentary: Skin Intact without Lesion / Mass Medical Decision Making Data Points Result Diagram: 12/30/18 1115 12/30/18 1115 EKG / Imaging EKG Interpretation atrial fibrillation with RVR, LBBB Assessment and Plan Problems: (1) Atrial fibrillation with RVR Status: Acute Assessment & Plan: She was started on diltiazem gtt after bolus with some decrease to BP. IV metoprolol was given x3 and her heart rate decreased but remained above target. Will begin Digoxin. Would ideally stop diltiazem, continue metoprolol and digoxin if sufficient to control rate given her previous orthostasis. SHe is on chronic Xarelto if cardioversion becomes necessary. (2) CKD (chronic kidney disease) stage 3, GFR 30-59 ml/min Status: Chronic Assessment & Plan: Stable (3) Hypothyroid Status: Chronic Assessment & Plan: TSH pending, continue chronic levothyroxine. Venous Thromboembolism Antithrombotics Is Pt On Any Antithrombotics?: Yes (on Xarelto) Exam Sepsis Risk: No Definite Risk FRANKEL ANIRUDH SOLOMON DO December 30, 2018 21:31
[2018-12-30] MEDS ORDERED: DILTIAZEM HCL 125 MG/25 ML SDV 125 MG in NS(*) 0.9% 100 ML BAG 100 ML IV SCH (23:59)
[2018-12-31] VITALS (8 sets, daily range): BP systolic 98–126; BP diastolic 8–82
[2018-12-31] MEDS ORDERED: DIGOXIN 0.5 MG/2 ML AMP IVP SCH (03:00)
[2018-12-31] MEDS: DILTIAZEM HCL 125 MG/25 ML SDV 125 MG in NS(*) 0.9% 100 ML BAG 100 ML IV ONE ×2 (04:30→06:10)
[2018-12-31] MEDS: LEVOTHYROXINE SOD 0.112 MG TAB PO SCH (06:06)
--- NOTE | 2018-12-31 07:03 | EKG ---
FACILITY: [facility] PATIENT NAME: JU PEREIRA : [id number] MR: [id number] V: [id number] EXAM DATE: ORDERING PHYSICIAN: ANIRUDH SOLOMON TECHNOLOGIST: RANDY Test Reason : TACHYCARDIA Blood Pressure : / mmHG Vent. Rate : 092 BPM Atrial Rate : 277 BPM P-R Int : 000 ms QRS Dur : 132 ms QT Int : 358 ms P-R-T Axes : 155 -38 105 degrees QTc Int : 442 ms Atrial flutter with variable AV block Left axis deviation Left bundle branch block Abnormal ECG When compared with ECG of 30-DEC-2018 19:54, Atrial flutter has replaced Atrial fibrillation Confirmed by Anirudh Harmon ([id number]) on 12/31/2018 8:03:18 AM Referred By: JUANITO Confirmed By:Anirudh Solomon
[2018-12-31] MEDS: ALLOPURINOL 300 MG TAB PO SCH (08:30)
[2018-12-31] MEDS: PANTOPRAZOLE SOD 40 MG TABEC PO SCH ×2 (08:30→20:27)
[2018-12-31] MEDS ORDERED: METOPROLOL SUCC XL 50 MG TABCR 50 MG TAB.ER.24H PO SCH (09:00)
--- NOTE | 2018-12-31 10:15 | Hospitalist Progress Note ---
Subjective Progress Notes Subjective This patient was admitted for atrial fibrillation. He had no acute events overnight. Patient Complains of: Cardiovascular: No: Chest Pain Respiratory: No: Shortness of Breath Physical Exam Vital Signs Date Time Temp Pulse Resp B/P (MAP) Pulse Ox O2 Delivery O2 Flow Rate FiO2 12/31/18 10:02 91 Nasal Cannula 2.0 12/31/18 08:35 89 12/31/18 07:11 98.3 18 120/67 (84) Intake and Output 12/31/18 07:00 Intake Total 1196.3 ml Balance 1196.3 ml Intake Oral 240 ml IV Total 956.3 ml # Voids 3 Cardiovascular: Regular Rate and Rhythm Respiratory: Clear to Auscultation Result Diagram: 12/30/18 1115 12/31/18 0601 Assessment and Plan Problems: (1) Atrial fibrillation with RVR Status: Acute Assessment & Plan: He was placed on IV diltiazem, and also received IV metoprolol and digoxin. He is now on diltiazem only. We will be decreasing his rate through the day, and will eventually wean him to oral diltiazem. (2) CKD (chronic kidney disease) stage 3, GFR 30-59 ml/min Status: Chronic Assessment & Plan: Stable (3) Hypothyroid Status: Chronic Assessment & Plan: TSH pending, continue chronic levothyroxine. Exam Sepsis Risk: No Definite Risk PETRONA BENOIT DO December 31, 2018 10:15
[2018-12-31] MEDS ORDERED: NS(*) 0.9% 1000 ML BAG 1,000 ML ONE (11:30)
[2018-12-31] MEDS ORDERED: POLYETHYLENE GLYCOL 17 GM PKT PO ONE (11:35)
[2018-12-31] MEDS ORDERED: DILTIAZEM CD 180 MG CAPCR PO ONE (15:15)
[2018-12-31] MEDS: INSULIN HUM LISPRO 100 UN/ML 3 ML VIAL SUBQ PRN (17:09)
[2018-12-31] MEDS ORDERED: DILTIAZEM SR 60 MG CAPCR PO ONE (18:30)
[2018-12-31] MEDS: ROSUVASTATIN CALCIUM 10 MG TAB PO SCH (20:27)
[2018-12-31] MEDS: GABAPENTIN 300 MG CAP PO SCH (20:27)
[2018-12-31] MEDS: RIVAROXABAN 10 MG TAB PO SCH (20:27)
[2018-12-31] MEDS: INSULIN GLARGINE 100 U/ML 3 ML PEN SUBQ SCH (20:28)
[2018-12-31] MEDS ORDERED: BISACODYL 10 MG SUPP PR PRN (22:25)
[2018-12-31] MEDS ORDERED: MAGNESIUM HYDROXIDE* 30ML UDCP PO PRN (22:25)
[2019-01-01] MEDS ORDERED: DILTIAZEM SR 60 MG CAPCR PO ONE (00:05)
[2019-01-01 03:12] VITALS: BP 118/72
[2019-01-01 05:36] LABS: PLATELET COUNT, AUTOMATED 170 K/uL (150-450)
[2019-01-01] MEDS: LEVOTHYROXINE SOD 0.112 MG TAB PO SCH (06:16)
[2019-01-01 07:27] VITALS: BP 95/83
[2019-01-01] MEDS: ALLOPURINOL 300 MG TAB PO SCH (08:11)
[2019-01-01] MEDS: PANTOPRAZOLE SOD 40 MG TABEC PO SCH (08:11)
[2019-01-01] MEDS ORDERED: DOCUSATE SODIUM 100 MG CAP PO SCH (09:00)
[2019-01-01] MEDS ORDERED: DILTIAZEM CD 180 MG CAPCR PO SCH (09:00)
[2019-01-01] MEDS ORDERED: DILTIAZEM CD 120 MG CAPCR PO SCH (09:00)
[2019-01-01] MEDS ORDERED: POLYETHYLENE GLYCOL 17 GM PKT PO SCH (09:00)
[2019-01-01 11:01] VITALS: BP 106/68
[2019-01-01] MEDS: INSULIN HUM LISPRO 100 UN/ML 3 ML VIAL SUBQ PRN (13:07)
[2019-01-01 13:11] VITALS: BP 115/54
--- NOTE | 2019-01-01 13:48 | Hospitalist Depart ---
Discharge Summary Reason for Hosp/Final Diag: (1) Atrial fibrillation with RVR Status: Acute Hospital Course & Plan: She was placed on IV diltiazem, and also received IV metoprolol and digoxin. She was then switched to IV diltiazem only and eventually converted to oral diltiazem at 240mg daily. She converted back to sinus rhythm on 01/01/19. She had been on Xarelto chronically and this was continued. Her dose of Xarelto was decreased to 15mg daily due to concurrent use of diltiazem in the face of renal insufficiency. A 24 hour Holter monitor has been ordered with results to Dr. Honeycutt. She is to follow up with her subpoena server, Dr. Honeycutt after discharge. She is to call for a follow up appointment on Wednesday. (2) CKD (chronic kidney disease) stage 3, GFR 30-59 ml/min Status: Chronic Hospital Course & Plan: Stable with a creatinine of 1.3. (3) Hypothyroid Status: Chronic Hospital Course & Plan: TSH is 1.72. Departure Weight (Pounds): 190 Weight (Ounces): 4.0 Result Diagram: 01/01/19 0508 12/31/18 0601 Condition: Improved Discharge: Home, Self Care Time Spent: < 30 min Discharge Instructions Home Meds Active Scripts Oxygen (OXYGEN) Inha, 2.5 L INH HS, #2.5 L And use 1L during the day. Prov:ELVIN JOLLEY MD 01/01/19 Rivaroxaban 15 Mg (XARELTO 15 MG) 15 Mg Tablet, 15 MG PO DAILY, #90 TAB Prov:ELVIN JOLLEY MD 01/01/19 Diltiazem Hcl (DILTIAZEM ER) 240 Mg Capsule.er, 240 MG PO DAILY, #90 CAP Prov:ELVIN JOLLEY MD 01/01/19 Reported Medications Levothyroxine Sodium (LEVOTHYROXINE SODIUM) 0.112 Mg Tab, 0.112 MG PO QDAY, TAB 12/30/18 Insulin Lispro 100 Un/Ml Pen (HUMALOG 3 ML PEN) 100 Unit/1 Ml Insuln.pen, 100 UN IT SQ, DIS.SYR SLIDING SCALE 12/30/18 Insulin Degludec (Tresiba) 100 Unit/Ml Vial, 50 UNITS SQ QHS 12/30/18 Gabapentin (GABAPENTIN) 300 Mg Capsule, 600 MG PO QHS, CAPSULE 12/30/18 Rosuvastatin Calcium (CRESTOR) 20 Mg Tablet, 20 MG PO QHS 12/30/18 Cholecalciferol (Vitamin D3) (VITAMIN D3) 1,000 Unit Tablet, 2000 UNIT PO QHS, TAB 12/30/18 Azelastine/Fluticasone (DYMISTA NASAL SPRAY) 23 Gm [place].pump, 23 GM NS BID 12/30/18 Allopurinol (ZYLOPRIM) 300 Mg Tablet, 300 MG PO QDAY, TAB 12/30/18 Carvedilol (CARVEDILOL) 12.5 Mg Tablet, 12.5 MG PO BID, #10 TAB 12/30/18 Omeprazole (OMEPRAZOLE) 20 Mg Capsule.dr, 1 CAP PO BID, CAP 12/30/18 Discontinued Reported Medications Rivaroxaban 20 Mg (XARELTO 20 MG) 20 Mg Tablet, 20 MG PO QHS, TAB 12/30/18 Oxygen (OXYGEN) Inha, 2 L INH QHS, L 12/30/18 Rivaroxaban 20 Mg (XARELTO 20 MG) 20 Mg Tablet, 20 MG PO QDAY, TAB 12/30/18 Levothyroxine Sodium (LEVOTHYROXINE SODIUM) 100 Mcg Tablet, 112 MCG PO QDAY, TAB 12/30/18 Rivaroxaban 20 Mg (XARELTO 20 MG) 20 Mg Tablet, 20 MG PO DAILY, #30 TAB 06/14/18 Cetirizine Hcl (ZYRTEC) 10 Mg Capsule, 10 MG PO QDAY, CAPSULE 05/16/18 Insulin Lispro 200 UN/ML PEN (Humalog Kwikpen) 200 Unit/1 Ml Insuln.pen 12,14 and 14 05/16/18 Cholecalciferol (Vitamin D3) (VITAMIN D3) 2,000 Unit Capsule, 2000 UNIT PO DAILY, CAPSULE 09/01/17 Discontinued Scripts Insulin Degludec (Tresiba Flextouch U-100) 100 Unit/Ml (3 Ml) Insuln.pen, 60 UNITS SQ DAILY, #4 BOX 0 Refills Increase by 2 units every 2 days until fasting blood sugar is 120 or less. Prov:ALEXANDRO BAZAN MD 12/13/18 Levothyroxine Sodium (LEVOTHYROXINE SODIUM) 0.112 Mg Tab, 0.112 MG PO QDAY, #30 TAB 0 Refills Prov:ALEXANDRO BAZAN MD 12/06/18 Amoxicillin 500 Mg Tab (AMOXICILLIN 500 MG TAB) 500 Mg Tablet, 1 TAB PO Q12H, #20 TAB Prov:ALEXANDRO BAZAN MD 12/05/18 Blood Sugar Diagnostic (CONTOUR) 1 Each Strip, 1 EACH MC 5XD, #100 STRIP 11 Refills Use 1 strip 5 times a day for glucose testing. Prov:ALEXANDRO BAZAN MD 09/27/18 Rosuvastatin Calcium (Rosuvastatin Calcium) 20 Mg Tablet, 1 TAB PO DAILY, #90 TAB 3 Refills Prov:ALEXNADRO BAZAN MD 08/19/18 Carvedilol (CARVEDILOL) 25 Mg Tablet, 25 MG PO BID, #90 TAB 3 Refills Prov:ALEXANDRO BAZAN MD 08/19/18 Omeprazole (OMEPRAZOLE) 20 Mg Capsule.dr, 2 CAP PO QDAY, #180 CAP 4 Refills Prov:ALEXANDRO BAZAN MD 06/17/18 Flash Glucose Sensor (Freestyle Marilu Sensor) 1 Each Kit, EA SUBQ DIRECTED, #3 11 Refills Prov:ALEXANDRO BAZAN MD 06/14/18 Flash Glucose Scanning [place] (Freestyle Marilu [place]) 1 Each Each, MISC ASDIRECTED ONCE, #1 Prov:ALEXANDRO BAZAN MD 06/14/18 Gabapentin (GABAPENTIN) 300 Mg Capsule, 2 CAP PO HS, #180 CAPSULE 3 Refills Prov:ALEXANDRO BAZAN MD 06/14/18 Exenatide Microspheres (Bydureon Pen) 2 Mg/0.65 Ml Pen.injctr, 2 MG SUBQ QWEEK, #6 EA 3 Refills Prov:ALEXANDRO BAZAN MD 06/14/18 Albuterol Sulfate 90 Mcg/Act (PROAIR HFA 90 MCG/ACT) 8.5 Gm Hfa.aer.ad, 2 PUFF IH Q4-6H, #1 INHALER 4 Refills Prov:ALEXANDRO BAZAN MD 06/14/18 Oxygen (OXYGEN) Inha, 2 L INH DAILY for 30 Days, L Prov:TOSHA JOLLEY MD 05/11/18 Azelastine/Fluticasone (DYMISTA NASAL SPRAY) 23 Gm [place].pump, 1 SPRAY NS BID, #3 BOTTLE 3 Refills Prov:ALEXANDRO BAZAN MD 04/26/18 Allopurinol (Allopurinol) 300 Mg Tablet, 1 TAB PO DAILY, #90 TAB 3 Refills Prov:ALEXANDRO BAZAN MD 04/01/18 Blood-Glucose Meter (BLOOD GLUCOSE METER) 1 Each Each, EACH MC QID, #1 Prov:ALEXANDRO BAZAN MD 02/25/18 Follow up Referrals: Cardiology @ [facility] with Dr. Honeycutt Diet: Diabetic Activity: As Tolerated Special Instructions: 1. Call Dr. Honeycutt office on Wednesday to schedule a follow up appointment. 2. Decrease dose of Xarelto to 15mg daily while on diltiazem. Copies to: ALEXANDRO BAZAN MD; CHULA HONEYCUTT MD ; Venous Thromboembolism Antithrombotics Is Pt On Any Antithrombotics?: Yes (on Xarelto) ELVIN JOLELY MD January 01, 2019 13:48
[2019-01-01] MEDS ORDERED: DILT240C2 PO (13:53)
[2019-01-01] MEDS ORDERED: RIVA15TA PO (14:00)
[2019-01-01] MEDS ORDERED: OXYGENHOME INH (14:22)
--- NOTE | 2019-01-02 18:50 | RT HOLTER TEST ---
FACILITY: [facility] PATIENT NAME: JU PEREIRA : [id number] MR: [id number] V: [id number] EXAM DATE: ORDERING PHYSICIAN: ELVIN JOLLEY TECHNOLOGIST: RANDY Hook-up date: 2019-01-01 14:51:00 Duration: 25:04:00 Test Indications: A-FIB Medications: SEE LIST [id number] QRS complexes 29 Ventricular ectopics which represent <1 % of total QRS comp. 1 Supraventricular ectopics which represent <1 % of total QRS comp. * Paced QRS complexes which represent % of total QRS comp. VENTRICULAR ECTOPY 29 Isolated 0 Bigeminal Cycles 0 Couplets 0 Runs 0 Beats in Runs * Beats LONGEST at * BPM at :: -- * Beats FASTEST at * BPM at :: -- SUPRAVENTRICULAR ECTOPY 1 Isolated 0 Couplets 0 Runs 0 Beats in Runs * Beats LONGEST at * BPM at :: -- * Beats FASTEST at * BPM at :: -- HEART RATES 66 MIN at 15:22:43 2019-01-01 97 AVG 139 MAX at 08:35:59 2019-01-02 LONGEST RR 0.952 secs at 15:22:43 2019-01-01 S-T LEVELS Channel 1 -12.800 mm MIN at 14:51:00 2019-01-01 -12.800 mm MAX at 14:51:00 2019-01-01 Channel 2 -12.800 mm MIN at 14:51:00 2019-01-0112.800 mm MAX at 14:51:00 2019-01-01 Channel 3 -12.800 mm MIN at 14:51:00 2019-01-0112.800 mm MAX at 14:51:00 2019-01-01 The patient did not report any symptoms during the test. She was in atrial fibrillation and atrial f lutter throughout the test. There were rare ventricular ectopy. The average heart rate was 97 beats per minute (bpm). The minimum heart rate wa s 66 bpm and the highest was 139 bpm. Confirmed by GABI CARVALHO ([id number]) on 01/02/2019 6:50:04 PM Referred By: KAROL Overread By: GABI CARVALHO
== END 2019-01-01 15:35 | disposition home or self-care (01) | DRG 309 ==
LOC: ER 11:11 → MED 13:17
PROVIDERS: ADMIT Internal Medicine; ATTEND Internal Medicine
PROC: 5A09357 Assistance with Respiratory Ventilation, Less than 24 Consecutive Hours, Continuous Positive Airway Pressure (ICD-10-PCS; principal; 2018-12-30)
DX: I48.2 Chronic atrial fibrillation (principal); I50.32 Chronic diastolic (congestive) heart failure; I13.0 Hypertensive heart and chronic kidney disease with heart failure and stage 1 through stage 4 chronic kidney disease, or unspecified chronic kidney disease; N18.3 Chronic kidney disease, stage 3 (moderate); E11.22 Type 2 diabetes mellitus with diabetic chronic kidney disease; K59.09 Other constipation; K21.9 Gastro-esophageal reflux disease without esophagitis; E78.00 Pure hypercholesterolemia, unspecified; M1A.9XX0 Chronic gout, unspecified, without tophus (tophi); E03.9 Hypothyroidism, unspecified; Z79.4 Long term (current) use of insulin; Z79.01 Long term (current) use of anticoagulants; Z88.5 Allergy status to narcotic agent; Z88.8 Allergy status to other drugs, medicaments and biological substances; Z99.81 Dependence on supplemental oxygen; Z87.440 Personal history of urinary (tract) infections; Z85.828 Personal history of other malignant neoplasm of skin; Z87.891 Personal history of nicotine dependence
CPT/HCPCS: 36415; 36416; 71045; 82040; 82247; 82310; 82374; 82435; 82565; 82947; 82948; 83735; 84075; 84132; 84155; 84295; 84443; 84450; 84460; 84484; 84520; 85025; 93005; 93225; 93226; 96361; 96365; 96375; 99285; J0153; J1160; J1815; J2405; J3490; J7030; J7050

== ENCOUNTER → 2019-01-10 | Outpatient (CLI) | payer MEDICARE ==
[2018-05-11 08:10] VITALS: BMI 33.5
[~2019-01-10] MED LIST changes: +ALLO-119 PO; +CHOL10005 PO; +DILT240C2 PO; +INSU100V8 SQ; +ROSU20TA24 PO
--- NOTE | 2019-01-10 11:19 | EKG ---
FACILITY: [facility] PATIENT NAME: JU PEREIRA : [id number] MR: [id number] V: [id number] EXAM DATE: ORDERING PHYSICIAN: ALEXANDRO BAZAN TECHNOLOGIST: RENEE Test Reason : Blood Pressure : / mmHG Vent. Rate : 131 BPM Atrial Rate : 131 BPM P-R Int : 000 ms QRS Dur : 126 ms QT Int : 344 ms P-R-T Axes : 000 -54 159 degrees QTc Int : 507 ms Atrial fibrillation Left axis deviation Left bundle branch block T wave abnormality, consider lateral ischemia Abnormal ECG When compared with ECG of 31-DEC-2018 06:49, Atrial fibrillation has replaced Atrial flutter T wave inversion more evident in Lateral leads Confirmed by Ochoa Harmon ([id number]) on 01/10/2019 9:49:52 PM Referred By: SULY Confirmed By:Ochoa Briceño
== END ==
LOC: LAB 09:08
PROVIDERS: ATTEND Emergency Medicine
DX: E11.9 Type 2 diabetes mellitus without complications (principal); Z79.4 Long term (current) use of insulin; E03.9 Hypothyroidism, unspecified; I48.91 Unspecified atrial fibrillation; I44.7 Left bundle-branch block, unspecified; R94.31 Abnormal electrocardiogram [ECG] [EKG]
CPT/HCPCS: 36415; 83036; 84443; 84484

== ENCOUNTER → 2019-01-20 | Outpatient (CLI) | payer MEDICARE ==
[2018-05-11 08:10] VITALS: BMI 33.5
== END ==
LOC: LAB 10:13
PROVIDERS: ATTEND Internal Medicine
DX: I48.0 Paroxysmal atrial fibrillation (principal)
CPT/HCPCS: 36415; 82310; 82374; 82435; 82565; 82947; 84132; 84295; 84520

== ENCOUNTER → 2019-02-14 | Outpatient (CLI) | payer MEDICARE ==
[2018-05-11 08:10] VITALS: BMI 33.5
[~2019-02-14] MED LIST changes: -OMEP-125 PO; +OMEP-126 PO; -RANI-366 PO; +RANI-54 PO
== END ==
LOC: LAB 11:23
PROVIDERS: ATTEND Internal Medicine
DX: I48.0 Paroxysmal atrial fibrillation (principal)
CPT/HCPCS: 36415; 82310; 82374; 82435; 82565; 82947; 84132; 84295; 84520

== ENCOUNTER → 2019-02-21 | Outpatient (CLI) | payer MEDICARE ==
[2018-05-11 08:10] VITALS: BMI 33.5
--- NOTE | 2019-02-21 16:12 | RADIOLOGY IMAGING REPORT ---
FACILITY: [facility] PATIENT NAME: Lluvia Stephenson : 1940 MR: [id number] V: [id number] EXAM DATE: ORDERING PHYSICIAN: RAFIA WILSON TECHNOLOGIST: Location: [facility] - [place] Patient: Lluvia Stephenson : 1940 Visit/Account:[id number] Date of Sevice: 02/21/2019 CAROTID HISTORY: History of carotid artery disease COMPARISON: July 28, 2019 FINDINGS: Grayscale, duplex and color Doppler interrogation of the extracranial carotid and vertebral arteries was performed bilateral. On the right, peak systolic velocities within the common and internal carotid arteries are 94 and 146 cm/sec respectively. There is a moderate amount of hard and soft plaque at the right carotid bulb e xtending into the proximal right internal and external carotid arteries. Antegrade flow within the c ommon, internal and external carotid arteries as well as vertebral artery. ICA/CCA ratio 1.6. On the left, peak systolic velocities within the common and internal carotid arteries are 114 and 185 cm/sec respectively. There is a long hard smooth plaque in the proximal left common carotid artery appearing similar to the prior study there is a moderate amount of plaque at the left carotid bulb ex tending into the internal and external carotid arteries. Antegrade flow within the common, internal and external carotid arteries as well as vertebral artery. ICA/CCA ratio 1.9. IMPRESSION: There is a moderate amount of plaque at both carotid bulbs extending into the proximal internal and e xternal carotid arteries. Elevated peak systolic velocity in the right ICA is consistent with a 50-6 9% category stenosis which is increased when compared to the prior study. The peak systolic velocity in the left ICA is also consistent with a 50-69% category stenosis. Velocity criteria are extrapolated from diameter data as defined by the Society of Radiologists in Ul trasound Consensus Conference Radiology 2003; 229;340-346 Report Dictated By: Kaylynn Torres MD at 02/21/2019 4:02 PM Report E-Signed By: Kaylynn Torres MD at 02/21/2019 4:07 PM WSN:[email or web address]
== END ==
LOC: US 14:41
PROVIDERS: ATTEND Internal Medicine
DX: I65.23 Occlusion and stenosis of bilateral carotid arteries (principal)
CPT/HCPCS: 93880

== ENCOUNTER → 2019-02-24 | Outpatient (CLI) | payer MEDICARE ==
[2018-05-11 08:10] VITALS: BMI 33.5
--- NOTE | 2019-02-24 15:24 | RADIOLOGY IMAGING REPORT ---
F[place] [facility] [place]IENT NAME: Lluvia Stephenson : 1940 MR: [id number] V: [id number] EXAM DATE: ORDERING PHYSICIAN: ALIREZA CONTE TECHNOLOGIST: Location: [facility] [place] Patient: Lluvia Stephenson : 1940 Visit/Account:[id number] Date of Sevice: 02/24/2019 CT CHEST W/O CONTRAST History: Shortness of breath TECHNIQUE: Contiguous axial images were performed through the chest to the level of the adrenal gla nds. No IV contrast was administered. Coronal and sagittal reformatting was also performed.Dose Lower ing Technique One of the following dose optimization techniques was utilized in the performance of this exam: Autom ated exposure control; adjustment of the mA and/or kV according to the patient's size; or use of an i terative reconstruction technique. Specific details can be referenced in the facility's radiology C T exam operational policy. COMPARISON STUDIES: CTA chest May 17, 2017. Lungs / Pleura: There small bilateral posterior layering pleural effusion slightly decreased in siz e when compared to the prior study. The degree of adjacent airspace consolidation the lower lobes is also partially improved. The previously described mosaic ground glass opacities throughout the lung s is improved. There is very mild centrilobular emphysema with an upper lobe predominance. Mediastinum/nodes: There is a 2 x 1 cm precarinal lymph node that appears relatively unchanged Heart and vessels: There calcifications at the root of the aorta. There are extensive coronary ksenia ry calcifications and calcifications the mitral annulus moderate calcifications of the thoracic aorta and branch vessels also noted Musculoskeletal / Body wall: There spondylotic changes of the thoracic spine Upper abdomen: Visualized abdominal viscera negative. IMPRESSION: There small bilateral posterior layering pleural effusions with adjacent airspace consolidation the l ower lobes although the findings are partially improved when compared the prior study Very mild centrilobular emphysema with an upper lobe predominance 2.1 cm precarinal lymph node image relatively unchanged Extensive coronary artery calcifications. Report Dictated By: Kaylynn Torres MD at 02/24/2019 3:09 PM Report E-Signed By: Kaylynn Torres MD at 02/24/2019 3:17 PM WSN:[email or web address]
== END ==
LOC: CT 06:55
PROVIDERS: ATTEND Internal Medicine
DX: J90 Pleural effusion, not elsewhere classified (principal); J43.2 Centrilobular emphysema; I25.10 Atherosclerotic heart disease of native coronary artery without angina pectoris
CPT/HCPCS: 71250

== ENCOUNTER → 2019-04-10 | Outpatient (CLI) | payer MEDICARE ==
[2018-05-11 08:10] VITALS: BMI 33.5
[2019-04-10 16:33] LABS: PLATELET COUNT, AUTOMATED 203 K/uL (150-450)
== END ==
LOC: LAB 15:52
PROVIDERS: ATTEND Emergency Medicine
DX: E55.9 Vitamin D deficiency, unspecified (principal); E11.9 Type 2 diabetes mellitus without complications; I10 Essential (primary) hypertension
CPT/HCPCS: 36415; 82306; 82310; 82374; 82435; 82465; 82565; 82947; 83036; 83718; 84132; 84295; 84478; 84520; 85025

== ENCOUNTER 2019-04-18 09:39 | Emergency (ER) | payer MEDICARE ==
[2018-05-11 08:10] VITALS: Wt 86.2 kg
[2019-04-18] MEDS ORDERED: CAR6.25 PO (09:51)
[2019-04-18] MEDS ORDERED: FURO20TA19 PO (09:51)
[2019-04-18] MEDS ORDERED: MELA1TAB5 SL (09:51)
[2019-04-18] MEDS ORDERED: UMEC1DIS (09:51)
[2019-04-18] MEDS ORDERED: ASPIRIN 81 MG CHEW PO ONE (10:15)
[2019-04-18 10:23] LABS: PLATELET COUNT, AUTOMATED 192 K/uL (150-450)
--- NOTE | 2019-04-18 10:53 | RADIOLOGY IMAGING REPORT ---
FACILITY: [facility] [place] PATIENT NAME: Lluvia Stephenson : 1940 MR: [id number] V: [id number] EXAM DATE: ORDERING PHYSICIAN: CHARLIE RIBERA TECHNOLOGIST: Location: [facility] Patient: Lluvia Stephenson : 1940 Visit/Account:[id number] Date of Sevice: 04/18/2019 Exam type: CHEST PA LAT History: Chest pain starting last night, left arm pain Comparison: December 30, 2018. Findings: Chronic initial markings appear stable throughout the lungs. There is no evidence of acute appearing infiltrates, pleural effusions or overt pulmonary edema. No evidence of a pneumothorax or pneumomed iastinum. The cardiac silhouette is within normal limits of size. There are spondylotic changes in the thoracic spine IMPRESSION: 1. Chronic interstitial markings of the lungs appear unchanged Report Dictated By: Kaylynn Torres MD at 04/18/2019 10:42 AM Report E-Signed By: Kaylynn Torres MD at 04/18/2019 10:44 AM WSN:[email or web address]
--- NOTE | 2019-04-18 11:29 | ER Report ---
History and Physical Time Seen By MD: 11:12 Hx. of Stated Complaint: LEFT SIDED NECK PAIN THAT RADIATED TO LEFT CHEST AND ARM THAT BEGAN AT 1900 LAST NIGHT HPI/ROS CHIEF COMPLAINT: Left-sided neck pain HISTORY OF PRESENT ILLNESS: This is a 78-year-old female who presents emergency department for left-sided neck pain. Patient states that she was at her diabetic doctor's office yesterday for the majority afternoon, she began to have some left-sided neck pain around 7:00 last night, progressively getting worse radiate d down into her left shoulder and arm. Patient has a history of atrial fibrillation, was concerned about her heart decided to come in for evaluation. She denies nausea or vomiting. She has had some diarrhea today, she thinks could be related to her diabetic medications. She denies shortness of breath. She denies anterior chest pain, pain seems to originate from her neck down into her left shoulder. No rashes. No headaches. REVIEW OF SYSTEMS: Constitutional: No fever, no chills. Eyes: No discharge. ENT: No sore throat. Cardiovascular: As above. Respiratory: No cough, no shortness of breath. Gastrointestinal: No abdominal pain, no vomiting. Genitourinary: No hematuria. Musculoskeletal: As above. Skin: No rashes. Neurological: No headache. Allergies: Coded Allergies: metaxalone (Verified Allergy, Severe, DIFFICULTY BREATHING, 04/18/19) morphine (Verified Allergy, Mild, RIGORS, 04/18/19) ciprofloxacin (Unverified Allergy, Unknown, 04/18/19) reported by patient, reaction unknown codeine (Verified Adverse Reaction, Severe, SICK, 04/18/19) adhesive tape (Verified Adverse Reaction, Intermediate, BURN, PEELS OFF SKIN, 04/18/19) Home Meds Active Scripts Rivaroxaban 20 Mg (XARELTO 20 MG) 20 Mg Tablet, 20 MG PO DAILY, #90 TAB 3 Refills Prov:ALEXANDRO BAZAN MD 04/12/19 Azelastine/Fluticasone (DYMISTA NASAL SPRAY) 23 Gm [place]ry.pump, 1 SPRAY NS BID, #3 BOTTLE 3 Refills Prov:ALEXANDRO BAZAN MD 04/10/19 Insulin Degludec (Tresiba) 100 Unit/Ml Vial, 28 UNITS SQ QHS, #1 BOX 0 Refills Increase by 2 units every 2 days until fasting glucose is 130 or less. Prov:ALEXANDRO BAZAN MD 04/05/19 Levothyroxine Sodium (LEVOTHYROXINE SODIUM) 0.112 Mg Tab, 0.112 MG PO QDAY, #90 TAB 3 Refills Prov:ALEXANDRO BAZAN MD 02/17/19 Gabapentin (GABAPENTIN) 300 Mg Capsule, 600 MG PO QHS, #180 CAPSULE 3 Refills Prov:ALEXANDRO BAZAN MD 02/17/19 Allopurinol (ZYLOPRIM) 300 Mg Tablet, 300 MG PO QDAY, #90 TAB 3 Refills Prov:ALEXANDRO BAZAN MD 02/17/19 Omeprazole (OMEPRAZOLE) 20 Mg Capsule.dr, 1 CAP PO BID, #180 CAP 3 Refills Prov:ALEXANDRO BAZAN MD 02/17/19 Oxygen (OXYGEN) Inha, 2.5 L INH HS, #2.5 L And use 1L during the day. Prov:ELVIN JOLLEY MD 01/01/19 Reported Medications Carvedilol (CARVEDILOL) 6.25 Mg Tab, 6.25 MG PO BID, TAB 04/18/19 Melatonin (MELATONIN) 1 Mg Tab.subl, 1 MG SL 04/18/19 Umeclidinium Brm/Vilanterol Tr (Anoro Ellipta 62.5-25 Mcg INH) 1 Each Disk.w.dev 04/18/19 Furosemide (LASIX) 20 Mg Tablet, 1 TAB PO Q8H, TAB 04/18/19 Insulin Lispro 100 Un/Ml Pen (HUMALOG 3 ML PEN) 100 Unit/1 Ml Insuln.pen, 100 UNIT SQ, DIS.SYR SLIDING SCALE 12/30/18 Cholecalciferol (Vitamin D3) (VITAMIN D3) 1,000 Unit Tablet, 2000 UNIT PO QHS, TAB 12/30/18 Carvedilol (CARVEDILOL) 12.5 Mg Tablet, 12.5 MG PO BID, #10 TAB 12/30/18 Discontinued Reported Medications Umeclidinium Brm/Vilanterol Tr (Anoro Ellipta 62.5-25 Mcg INH) 1 Each Disk.w.dev, 1 INHALATION INH DAILY 04/10/19 Discontinued Scripts Rosuvastatin Calcium (CRESTOR) 20 Mg Tablet, 20 MG PO QHS, #90 TAB 3 Refills Prov:ALEXANDRO BAZAN MD 02/17/19 Diltiazem Hcl (DILTIAZEM ER) 240 Mg Capsule.er, 240 MG PO DAILY, #90 CAP Prov:ELVIN JOLLEY MD 01/01/19 Rivaroxaban 15 Mg (XARELTO 15 MG) 15 Mg Tablet, 15 MG PO DAILY, #90 TAB Prov:ALEXANDRO BAZAN MD 04/10/19 Past Medical/Surgical History The patient has a past medical and surgical history of a fibrillation, hypertension, hypercholesterolemia, wears CPAP, pneumonia, GERD, gastric ulcers, stage III chronic kidney disease, urinary tract infections, gout, right foot fracture, wears glasses, cataract surgery, wears hearing aids, hard of hearing, type II diabetes, hypothyroidism, basal cell carcinoma, left hand surgery. Reviewed Nurses Notes: Yes Hx Smoking: Yes (Quit 14 years ago) Smoking Status: Former Smoker Exposure to Second Hand Smoke?: No Hx Substance Use Disorder: No Hx Alcohol Use: No Constitutional Vital Sign - Last 24 Hours 04/18/19 04/18/19 04/18/19 04/18/19 09:46 09:51 10:00 11:00 Temp 97.9 Pulse 63 62 62 Resp 20 18 18 B/P (MAP) 172/63 Pulse Ox 99 96 92 O2 Delivery Nasal Cannula O2 Flow Rate 2.0 04/18/19 04/18/19 04/18/19 04/18/19 11:30 12:30 12:33 12:58 Pulse 62 62 Resp 10 15 B/P (MAP) 182/119 (140) 91/57 (68) Pulse Ox 94 99 04/18/19 04/18/19 13:00 13:30 Pulse 64 62 Resp 26 17 Pulse Ox 100 94 Physical Exam General Appearance: The patient is alert, has no immediate need for airway protection and no signs of toxicity. Eyes: Pupils equal and round no pallor or injection. ENT, Mouth: Mucous membranes are moist. Respiratory: There are no retractions, lungs are clear to auscultation. Cardiovascular: Regular rate and rhythm. No murmurs, clicks or rubs. Gastrointestinal: Abdomen is soft and non tender, no masses, bowel sounds normal. Neurological: Alert and oriented test 4. Moving all extremities. Following all commands. No focal neuro deficits per Skin: Warm and dry, no rashes. Musculoskeletal: Neck is supple mild tenderness to the left lateral neck, tenderness to the left shoulder with palpation, no crepitus or rashes or obvious deformity. Extremities are nontender, nonswollen and have full range of motion. DIFFERENTIAL DIAGNOSIS: After history and physical exam differential diagnosis was considered for chest pain including but not limited to myocardial ischemia, pericarditis pulmonary embolus, chest wall pain, or call us, radiculopathy, pleural inflammation and pulmonary infectious causes. Medical Decision Making Data Points Result Diagram: 04/18/19 0956 04/18/19 0956 Laboratory Hematology Test 04/18/19 09:56 White Blood Count 7.3 k/uL (4.5-11.0) Red Blood Count 3.84 M/uL (4.17-5.56) L Hemoglobin 11.2 g/dL (12.0-16.0) L Hematocrit 33.2 % (34.0-47.0) L Mean Corpuscular Volume 86.6 fL (80.0-96.0) Mean Corpuscular Hemoglobin 29.1 pg (26.0-33.0) Mean Corpuscular Hemoglobin Concent 33.6 g/dL (32.0-36.0) Red Cell Distribution Width 17.4 % (11.5-14.5) H Platelet Count 192 K/uL (150-450) Mean Platelet Volume 9.1 fL (7.2-11.1) Neutrophils (%) (Auto) 67.7 % (39.4-72.5) Lymphocytes (%) (Auto) 18.5 % (17.6-49.6) Monocytes (%) (Auto) 11.3 % (4.1-12.4) Eosinophils (%) (Auto) 1.9 % (0.4-6.7) Basophils (%) (Auto) 0.6 % (0.3-1.4) Nucleated RBC Relative Count (auto) 0.1 /100WBC Neutrophils # (Auto) 5.0 K/uL (2.0-7.4) Lymphocytes # (Auto) 1.4 K/uL (1.3-3.6) Monocytes # (Auto) 0.8 K/uL (0.3-1.0) Eosinophils # (Auto) 0.1 K/uL (0.0-0.5) Basophils # (Auto) 0.0 K/uL (0.0-0.1) Nucleated RBC Absolute Count (auto) 0.01 K/uL Chemistry Test 04/18/19 09:56 04/18/19 12:35 Sodium Level 137 mmol/L (137-145) Potassium Level 4.1 mmol/L (3.5-5.0) Chloride Level 104 mmol/L (98-107) Carbon Dioxide Level 22 mmol/L (22-31) Blood Urea Nitrogen 30 mg/dl (7-18) Creatinine 1.30 mg/dl (0.52-1.04) Glomerular Filtration Rate Calc 39.8 Random Glucose 125 mg/dl (75-110) Calcium Level 9.5 mg/dl (8.4-10.2) Total Bilirubin 0.5 mg/dl (0.2-1.3) Aspartate Amino Transf (AST/SGOT) 39 U/L (0-35) Alanine Aminotransferase (ALT/SGPT) 41 U/L (0-56) Alkaline Phosphatase 77 U/L (0-126) Troponin I < 0.012 ng/ml Total Protein 7.3 g/dl (6.3-8.2) Albumin 4.1 g/dl (3.5-5.0) Whole Blood Glucose 91 mg/DL (75-110) EKG/Imaging EKG Interpretation 12 lead EKG: EKG 939. Rhythm: Normal sinus rhythm, ventricular rate 64 bpm. [place]: Left anterior fascicular block. QRS: normal ST segments: No ST depression or elevation identified. When compared to the 01/10/2019 EKG this is different, previous EKG showing atrial fibrillation with a left bundle branch block. Imaging FACILITY: [facility] - [place] PATIENT NAME: Lluvia Stephenson : 1940 MR: [id number] V: [id number] EXAM DATE: ORDERING PHYSICIAN: DEE BEAUCHAMP TECHNOLOGIST: Location: [facility] - [place] Patient: Lluvia Stephenson : 1940 Visit/Account:[id number] Date of Sevice: 04/18/2019 SHOULDER MIN 2 VIEWS LEFT HISTORY: pain COMPARISON: None FINDINGS: AP views of the left shoulder in internal and external rotation as well as a Y view were obtained. There is no evidence of glenohumeral joint dislocation. There are no significant degenerative changes. The acromioclavicular joint is normal in appearance. IMPRESSION: No acute osseous abnormality Report Dictated By: Leonel Christiansen at 04/18/2019 12:30 PM Report E-Signed By: Leonel Christiansen at 04/18/2019 12:31 PM WSN:[id number] FACILITY: [facility] [place] PATIENT NAME: Lluvia Stephenson : 1940 MR: [id number] V: [id number] EXAM DATE: ORDERING PHYSICIAN: DEE BEAUCHAMP TECHNOLOGIST: Location: [facility] - [place] Patient: Lluvia Stephenson : 1940 Visit/Account:[id number] Date of Sevice: 04/18/2019 CERVICAL SPINE 2 OR 3 VIEW HISTORY: Left arm and neck pain COMPARISON: None FINDINGS: AP lateral swimmer's and open-mouth views of the cervical spine were obtained. The examination demonstrates normal alignment of the cervical vertebrae. There is mild degenerative disease present. There is no evidence of acute bony abnormality. The prevertebral soft tissues are unremarkable. The atlantoaxial articulation is unremarkable. IMPRESSION: Mild degenerative disease, otherwise unremarkable. Report Dictated By: Leonel Christiansen at 04/18/2019 12:31 PM Report E-Signed By: Leonel Christiansen at 04/18/2019 12:33 PM WSN:[id number] FACILITY: [facility] [place] PATIENT NAME: Lluvia Stephenson : 1940 MR: [id number] V: [id number] EXAM DATE: ORDERING PHYSICIAN: CHARLIE RIBERA TECHNOLOGIST: Location: [facility] [place] Patient: Lluvia Stephenson : 1940 Visit/Account:[id number] Date of Sevice: 04/18/2019 Exam type: CHEST PA LAT History: Chest pain starting last night, left arm pain Comparison: December 30, 2018. Findings: Chronic initial markings appear stable throughout the lungs. There is no evidence of acute appearing infiltrates, pleural effusions or overt pulmonary edema. No evidence of a pneumothorax or pneumomediastinum. The cardiac silhouette is within normal limits of size. There are spondylotic changes in the thoracic spine IMPRESSION: 1. Chronic interstitial markings of the lungs appear unchanged Report Dictated By: Kaylynn Torres MD at 04/18/2019 10:42 AM Report E-Signed By: Kaylynn Torres MD at 04/18/2019 10:44 AM WSN:[email or web address] ED Course/Re-evaluation Clinical Indication for ER IV: Hydration, IV Access ED Course The patient was admitted to room. A history of physical obtained per di fferential diagnoses were considered. IV was started. A CBC, CMP, troponin were obtained.CBC showing H&H 11.2 and 33.2, chemistry showing BUN and creatinine 3 and 1.3, these are consistent with the patient's historical data, the Accu-Chek was 65, patient was given juice, she had a negative troponin. Patient was also given 2 mg IV morphine, and a lidocaine patch to the left shoulder,. The cervical spine x-ray showing degenerative changes, negative left shoulder. I did review the results with the patient, I did tell her that the pain she is experiencing is likely a cervical radiculopathy, I did recommend following up with Dr. Briseno and her primary care provider for reevaluation. She did have some shaking after the morphine, we repeated her blood sugar was 91, I do feel that the shakiness and her unusual feeling was secondary to the morphine, she was given 12.5 mg IV Benadryl 2, she did have some relief of her shakiness and overall sensation from the morphine. The patient was agreeable with this plan of care, and no other questions discharged home. Decision to Disposition Date: Apr 18, 2019 Decision to Disposition Time: 13:15 Depart Departure Latest Vital Signs Vital Signs Date Time Temp Pulse Resp B/P (MAP) Pulse Ox O2 Delivery O2 Flow Rate FiO2 04/18/19 13:30 62 17 94 04/18/19 12:58 91/57 (68) 04/18/19 09:51 97.9 Nasal Cannula 04/18/19 09:46 2.0 Core Temperature (Celsius): 36.56 Impression: Primary Impression: Cervical radiculopathy Condition: Improved Disposition: HOME OR SELF-CARE Referrals: ALEXANDRO BAZAN MD (PCP) 1 Week CHULA BRISENO MD Patient Instructions: Cervical Radiculopathy (ED) Additional Instructions: Your laboratory studies are consistent with the previous laboratory studies we have on file, EKG is in a normal sinus rhythm, no concerning findings on your chest x-ray. Please follow-up with your primary care provider for reevaluation, within one week. Please follow-up with [facility] for reevaluation and discussion of the cervical spine pain. Continue taking your medications as prescribed. Drink plenty of water. Get plenty of rest. Return to the ER for any other concerns or worsening symptoms. DEE BEAUCHAMP [employer] CUTTER-BC Apr 18, 2019 11:29
[2019-04-18] MEDS ORDERED: LIDOCAINE 5% PATCH TP ONE ×2 (11:45→11:48)
[2019-04-18] MEDS ORDERED: NS(*) 0.9% 500 ML BAG 500 ML IV ONE (11:45)
[2019-04-18] MEDS ORDERED: MORPHINE 2 MG/ML SYR IVP ONE (11:45)
--- NOTE | 2019-04-18 11:50 | EKG ---
FACILITY: [facility] PATIENT NAME: JU PEREIRA : [id number] MR: [id number] V: [id number] EXAM DATE: ORDERING PHYSICIAN: CHARLIE RIBERA TECHNOLOGIST: CRISTINA Bray Reason : CP Blood Pressure : / mmHG Vent. Rate : 064 BPM Atrial Rate : 064 BPM P-R Int : 186 ms QRS Dur : 124 ms QT Int : 430 ms P-R-T Axes : 070 -51 024 degrees QTc Int : 443 ms Normal sinus rhythm Left anterior fascicular block Left ventricular hypertrophy with QRS widening Abnormal ECG When compared with ECG of 10-JAN-2019 08:13, Sinus rhythm has replaced Atrial fibrillation Vent. rate has decreased BY [address] no longer depressed in Anterior leads T wave inversion no longer evident in Lateral leads Confirmed by PETRONA BENOIT ([id number]) on 04/19/2019 6:37:55 AM Referred By: MOUNIKA Confirmed By:PETRONA BENOIT
--- NOTE | 2019-04-18 12:39 | RADIOLOGY IMAGING REPORT ---
FACILITY: PATIENT NAME: Lluvia Stephenson : 1940 MR: [id number] V: [id number] EXAM DATE: ORDERING PHYSICIAN: DEE BEAUCHAMP TECHNOLOGIST: Location: [facility] - [place] Patient: Lluvia Stephenson : 1940 Visit/Account:[id number] Date of Sevice: 04/18/2019 SHOULDER MIN 2 VIEWS LEFT HISTORY: pain COMPARISON: None FINDINGS: AP views of the left shoulder in internal and external rotation as well as a Y view were ob tained. There is no evidence of glenohumeral joint dislocation. There are no significant degenerative changes. The acromioclavicular joint is normal in appearance. IMPRESSION: No acute osseous abnormality Report Dictated By: Leonel Christiansen at 04/18/2019 12:30 PM Report E-Signed By: Leonel Christiansen at 04/18/2019 12:31 PM WSN:[id number]
--- NOTE | 2019-04-18 12:41 | RADIOLOGY IMAGING REPORT ---
FACILITY: [facility] PATIENT NAME: Lluvia Stephenson : 1940 MR: [id number] V: [id number] EXAM DATE: ORDERING PHYSICIAN: DEE BEAUCHAMP TECHNOLOGIST: Location: [facility] - [place] Patient: Lluvia Stephenson : 1940 Visit/Account:[id number] Date of Sevice: 04/18/2019 CERVICAL SPINE 2 OR 3 VIEW HISTORY: Left arm and neck pain COMPARISON: None FINDINGS: AP lateral swimmer's and open-mouth views of the cervical spine were obtained. The examinat ion demonstrates normal alignment of the cervical vertebrae. There is mild degenerative disease prese nt. There is no evidence of acute bony abnormality. The prevertebral soft tissues are unremarkable. T he atlantoaxial articulation is unremarkable. IMPRESSION: Mild degenerative disease, otherwise unremarkable. Report Dictated By: Leonel Christiansen at 04/18/2019 12:31 PM Report E-Signed By: Leonel Christiansen at 04/18/2019 12:33 PM WSN:[id number]
[2019-04-18] MEDS ORDERED: diphenhydrAMINE 50 MG/ML VIAL IVP ONE ×2 (12:55→13:20)
[2019-04-18 12:58] VITALS: BP 91/57
[2019-04-18] MEDS ORDERED: PATCH REMOVAL 1 EA TP ONE (21:00)
== END 2019-04-18 14:09 | disposition home or self-care (01) ==
LOC: ER 09:40
DX: M54.12 Radiculopathy, cervical region (principal); I48.91 Unspecified atrial fibrillation; E11.22 Type 2 diabetes mellitus with diabetic chronic kidney disease; I12.0 Hypertensive chronic kidney disease with stage 5 chronic kidney disease or end stage renal disease; N18.3 Chronic kidney disease, stage 3 (moderate); Z87.891 Personal history of nicotine dependence; Z79.01 Long term (current) use of anticoagulants; Z79.4 Long term (current) use of insulin
CPT/HCPCS: 36416; 71046; 72040; 73030; 82948; 84484; 85025; 93005; 96374; 96375; 96376; 99284; A9270; J1200; J2270; J7040; 82040; 82247; 82310; 82374; 82435; 82565; 82947; 84075; 84132; 84155; 84295; 84450; 84460; 84520